=== PATIENT | female | born 1940 | race Caucasian/White ===

== ENCOUNTER 2018-05-11 07:41 | Emergency (ER) | payer MEDICARE, OTHER ==
[2018-05-11 08:12] LABS: #Basophils 0.1 thou/uL (0.0-0.2); #Eosinphils 0.1 thou/uL (0.0-0.7); #Monocytes 0.8 thou/uL (0.11-0.59); #Neutrophils 8.6 thou/uL (1.40-6.50); %Basophils 0.4 % (0.0-1.0); %Eosinophils 0.7 % (0.0-10.0); %Lymphocytes 17.4 % (21.0-51.0); %Monocytes 6.9 % (0.0-10.0); %Neutrophils 74.6 % (42.0-75.0); Hemoglobin 14.7 g/dL (12.0-16.0); Mean Corpuscular HGB CONC 32.1 g/dL (32.0-36.0); Mean Corpuscular Hemoglobin 29.9 pg (27.0-31.0); Mean Platelet Volume 8.3 fL (7.4-10.4); Platelet Count 195 thou/uL (130-400); RBC Distribution Width 12.4 % (11.5-14.5); Red Blood Cell (RBC) Count 4.91 mill/uL (4.20-5.40); White Blood Cell (WBC) Count 11.6 thou/uL (4.8-10.8)
[2018-05-11 08:19] LABS: ALT (SGPT) 9 U/L (8-55); AST (SGOT) 14 U/L (5-34); Albumin 3.8 g/dL (3.4-4.8); Alkaline Phosphatase 81 U/L (40-150); Anion Gap 16 mmol/L (10-20); BUN (Urea Nitrogen) 16 mg/dL (9.8-20.1); Bilirubin, Total 0.4 mg/dL (0.2-1.2); Calc. Creatinine Clearance 0 mL/min (70-130); Carbon Dioxide 23 mmol/L (23-31); Chloride 108 mmol/L (98-107); Estimated GFR-MDRD 66; Globulin 2.9 g/dL (2.4-3.5); Glucose 142 mg/dL (83-110); Protein, Total 6.7 g/dL (6.0-8.3); Sodium 143 mmol/L (136-145)
--- NOTE | 2018-05-11 08:30 | RAD ---
CHEST 1 VIEW: Date: 05/11/18 HISTORY: Syncope. COMPARISON: None. FINDINGS: Lungs are clear. No pneumothorax or effusion. Cardiac silhouette and mediastinal contours within norm al limits. No acute osseous abnormality. No acute osseous abnormality. Moderate vascular calcificatio ns transverse aorta. IMPRESSION: No acute intrathoracic abnormality. POS: [facility]
[2018-05-11 10:30] LABS: Bilirubin Negative (Negative); Blood, Urine Negative (Negative); Clarity CLEAR (Clear); Glucose, Urine (Dipstick) Negative (Negative); Leukocyte Small (Negative); Nitrite Negative (Negative); Protein, Urine (Dipstick) Trace mg/dL (Neg-Trace); Specific Gravity, Urine 1.014 (1.002-1.036)
[2018-05-11 10:32] LABS: Bacteria/HPF None Seen HPF (None Seen); Hyaline Casts/LPF 4-6 HYALINE CAST LPF (0-3 Hyaline); Pathc Cast-AUWi Flag 0.72 (0-2.49)
[2018-05-11 10:49] LABS: Renal Epithelial None Seen HPF (0-3); Transitional Epithelial 0-3 HPF (0-3)
== END 2018-05-11 13:55 | disposition home or self-care (01) ==
LOC: ERS 07:41
DX: R55 Syncope and collapse (principal); I10 Essential (primary) hypertension; Z79.899 Other long term (current) drug therapy
CPT/HCPCS: 36415; 71045; 80053; 81003; 81015; 84484; 85025; 93005; 94760; 96360; 96361

== ENCOUNTER 2020-03-09 10:42 | Inpatient (IN) | payer MEDICARE, OTHER ==
[2020-03-09] MEDS ORDERED: Dexamethasone 10 MG/ML VIAL ONE (11:02)
[2020-03-09 11:24] LABS: #Basophils 0.1 thou/uL (0.0-0.2); #Monocytes 0.7 thou/uL (0.11-0.59); #Neutrophils 4.8 thou/uL (1.40-6.50); %Basophils 1.7 % (0.0-1.0); %Eosinophils 0.1 % (0.0-10.0); %Lymphocytes 14.7 % (21.0-51.0); %Monocytes 10.5 % (0.0-10.0); %Neutrophils 73.1 % (42.0-75.0); Hemoglobin 14.2 g/dL (12.0-16.0); Mean Corpuscular HGB CONC 33.4 g/dL (32.0-36.0); Mean Corpuscular Hemoglobin 30.4 pg (27.0-31.0); Mean Corpuscular Volume 90.9 fL (78.0-98.0); Mean Platelet Volume 9.2 fL (7.4-10.4); Platelet Count 126 thou/uL (130-400); RBC Distribution Width 12.3 % (11.5-14.5); Red Blood Cell (RBC) Count 4.69 mill/uL (4.20-5.40); White Blood Cell (WBC) Count 6.6 thou/uL (4.8-10.8)
--- NOTE | 2020-03-09 11:32 | RAD ---
CHEST 1 VIEW PORTABLE: HISTORY: Dyspnea, COVID positive, diarrhea. COMPARISON: 05/11/2018. FINDINGS: Heart size is within normal limits. Stable increased markings noted bilaterally with mild biapical p leural thickening. No evidence for overt pneumonia. IMPRESSION: No convincing evidence for pneumonia. Stable-appearing chronic lung changes. Atherosclerosis of the aorta. Consider followup evaluation if patient has persistent or worsening symptoms. POS: [facility]
[2020-03-09 11:37] LABS: ALT (SGPT) 13 U/L (8-55); AST (SGOT) 28 U/L (5-34); Albumin 3.7 g/dL (3.4-4.8); Alkaline Phosphatase 65 U/L (40-110); Anion Gap 16 mmol/L (10-20); BUN (Urea Nitrogen) 13 mg/dL (9.8-20.1); Bilirubin, Total 0.7 mg/dL (0.2-1.2); CK (CPK) 47 U/L (29-168); Calc. Creatinine Clearance 0 mL/min (70-130); Calcium 8.6 mg/dL (7.8-10.44); Carbon Dioxide 24 mmol/L (23-31); Chloride 100 mmol/L (98-107); Glucose 147 mg/dL (83-110); Lipase 29 U/L (8-78); Protein, Total 6.7 g/dL (6.0-8.3); Sodium 136 mmol/L (136-145)
[2020-03-09 12:02] LABS: CKMB 0.5 ng/mL (0-6.6)
[2020-03-09 13:24] LABS: Troponin I 0.047 ng/mL (< 0.028)
[2020-03-09] MEDS ORDERED: Acetaminophen 650 MG Suppository PR PRN (14:24)
--- NOTE | 2020-03-09 15:01 | PDOC.HHP ---
Hospitalist HPI - History of Present Illness History of Present Illness: ADMISSION DATE: 03/09/2020 TIME OF ASSESSMENT: 1400 PRIMARY CARE PHYSICIAN: Dr. Jha CHIEF COMPLAINT: Syncope and diarrhea HPI: This is a 79-year-old woman who was brought into the emergency department via EMS after having a fall/syncopal episode immediately after getting up from the toilet this morning at approximately 9 AM. Patient denies feeling unwell prior to falling and does not recall having any chest pain, shortness of breath, diaphoresis, lightheadedness or dizziness. She does not think she lost consciousness and feels she was fully alert when she fell. She states she called out for her right away. Immediately after falling to the ground she experienced uncontrollable watery stools that she states "flowed out like water". She denies having any abdominal pain or discomfort. Did not note any blood in her stool. States she had a bowel movement yesterday and it was normal. She has not been exposed anyone with a GI bug that she is aware of. Her primary complaint at this time is feeling extremely thirsty and states she has not had anything to eat or drink since she woke up this morning. She denies experiencing any head injury and reports feeling generally sore but otherwise without any significant pain anywhere. Reports feeling well in herself in recent days. She has not had any fevers chills or sweats. No cough or hemoptysis. She did get tested on Friday for Covid and was found to be positive. States she only got tested due to exposure to her daughter who tested positive a week ago. Patient denies experiencing any symptoms associated with Covid. ED COURSE: In the emergency department she had an EKG done which showed a left bundle branch block. Per Dr. Galdamez this was compared to old EKGs which were similar. She had laboratory studies done which showed a white cell count 6.6, hemoglobin 14.2, hematocrit 42.6, platelets 126. Neutrophils 73.1%. CMP was notable for an elevated creatinine of 1.17, BUN 13, GFR 45. Glucose was 147. LFTs were unremarkable. Lipase normal. CK 47. BN P was 116.5. CK-MB normal. Initial troponin done showed an indeterminate level of 0.034, second troponin was slightly elevated 0.047. She was initially going to be discharged home however given the failure increasing the troponin the decision was made to admit her to telemetry opts for continued observation and further trending troponins. Chest x-ray done showed no convincing evidence for pneumonia. Stable appearing chronic lung changes and atherosclerosis of the aorta present. In the emergency department she was given aspirin 324 mg p.o. She received 10 mg of Decadron due to known Covid infection. She also received 1 L of normal saline. PAST MEDICAL HISTORY: 1. Hypertension PAST SURGICAL HISTORY: 1. Abdominal hernia repair SOCIAL HISTORY: She lives with her . She is fully independent at baseline and mobilizes without the need of assistive devices. Denies any tobacco use or alcohol consumption. FAMILY HISTORY: Noncontributory ALLERGIES: No known drug allergies CURRENT MEDICATIONS: 1. Amlodipine 5 mg p.o. daily 2. Lisinopril 20 mg p.o. daily - Exam General Appearance: NAD, awake alert General - other findings: VS: Temp 100, BP 112/56, HR 78, RR 20, O2 sat 97% on room air Eye: PERRL, anicteric sclera ENT: normocephalic atraumatic, no oropharyngeal lesions, moist mucosa Neck: supple, no lymphadenopathy Heart: RRR, normal peripheral pulses Respiratory: CTAB, no wheezes, no rales, no ronchi, normal chest expansion Gastrointestinal: soft, non-tender, non-distended, normal bowel sounds, no guarding, no rigidity Gastrointestinal - other findings: mid abdominal incision, well healed Extremities: no edema Skin: normal turgor, no lesions, no rashes Neurological: cranial nerve grossly intact, normal sensation to touch, no weakness Musculoskeletal: normal tone, normal strength, no muscle wasting Psychiatric: normal affect, normal behavior, A&O x 3 Hospitalist Results - Labs Result Diagrams: 03/09/20 11:02 03/09/20 11:02 Lab results: WBC 6.6 thou/uL (4.8-10.8) 03/09/20 11:02 Hgb 14.2 g/dL (12.0-16.0) 03/09/20 11:02 Hct 42.6 % (36.0-47.0) 03/09/20 11:02 MCV 90.9 fL (78.0-98.0) 03/09/20 11:02 Plt Count 126 thou/uL (130-400) L 03/09/20 11:02 Neutrophils % 73.1 % (42.0-75.0) 03/09/20 11:02 Sodium 136 mmol/L (136-145) 03/09/20 11:02 Potassium 4.0 mmol/L (3.5-5.1) 03/09/20 11:02 Chloride 100 mmol/L (98-107) 03/09/20 11:02 Carbon Dioxide 24 mmol/L (23-31) 03/09/20 11:02 BUN 13 mg/dL (9.8-20.1) 03/09/20 11:02 Creatinine 1.17 mg/dL (0.6-1.1) H 03/09/20 11:02 Glucose 147 mg/dL (83-110) H 03/09/20 11:02 Calcium 8.6 mg/dL (7.8-10.44) 03/09/20 11:02 Total Bilirubin 0.7 mg/dL (0.2-1.2) 03/09/20 11:02 AST 28 U/L (5-34) 03/09/20 11:02 ALT 13 U/L (8-55) 03/09/20 11:02 Alkaline Phosphatase 65 U/L (40-110) 03/09/20 11:02 Creatine Kinase 47 U/L (29-168) 03/09/20 11:02 CK-MB (CK-2) 0.5 ng/mL (0-6.6) 03/09/20 11:02 Troponin I 0.047 ng/mL (< 0.028) H 03/09/20 12:49 B-Natriuretic Peptide 116.5 pg/mL (0-100) H 03/09/20 11:02 Serum Total Protein 6.7 g/dL (6.0-8.3) 03/09/20 11:02 Albumin 3.7 g/dL (3.4-4.8) 03/09/20 11:02 Lipase 29 U/L (8-78) 03/09/20 11:02 Hospitalist H&P A/P - Problem (1) Pre-syncope Status: Acute (2) Elevated troponin I level Code(s): R77.8 - OTHER SPECIFIED ABNORMALITIES OF PLASMA PROTEINS Status: Acute (3) Diarrhea Code(s): R19.7 - DIARRHEA, UNSPECIFIED Status: Acute (4) COVID-19 virus detected Code(s): U07.1 - COVID-19 Status: Acute (5) KG (acute kidney injury) Code(s): N17.9 - ACUTE KIDNEY FAILURE, UNSPECIFIED Status: Acute (6) Hypertension Code(s): I10 - ESSENTIAL (PRIMARY) HYPERTENSION Status: Chronic - Plan Plan: Patient with post-micturation pre-syncope: Denies LOC Admitted for pre-syncope/syncope work-up, likely due vasovagal episode Continue cardiac monitoring Obtain orthostatic BPs Unable to have an echo given covid status Falls precaution PT/OT consulted Obtain UA/UCx Elevated Troponin: More likely due to underlying KG rather than cardiac in nature Continue to trend Remains CP free cardiac monitoring Diarrhea: Stool studies ordered Clear liquid diet, advance as tolerated Monitor electrolytes and replace as needed COVID +: Asymptomatic at present Hold further antibiotics Will give Zinc and Vitamin C Continue isolation precautions KG: Continue IV fluids Monitor renal function Hypertension: Monitor BP Hold antihypertensives for now given BP in 110s systolic DVT Prophylaxis: Mechanical SCDs. CODE STATUS FULL Case discussed with attending who agrees with plan as above.
[2020-03-09 16:57] LABS: Lactic Acid 0.8 mmol/L (0.5-2.2)
[2020-03-09 17:04] LABS: Troponin I 0.016 ng/mL (< 0.028)
[2020-03-09] MEDS: Famotidine 20 MG TAB PO SCH (20:19)
[2020-03-09] MEDS: Sodium Chloride 0.9% 1,000 ML IV SCH (20:19)
[2020-03-09] MEDS: Acetaminophen 325 MG TAB PO PRN (22:22)
[2020-03-09 23:04] LABS: Bacteria/HPF 3+ HPF (None Seen); Bilirubin Negative (Negative); Blood, Urine Negative (Negative); Clarity Turbid (Clear); Glucose, Urine (Dipstick) Normal (Negative); Ketone, Urine 10 mg/dL (Negative); Leukocyte 500 Leu/uL (Negative); Nitrite Negative (Negative); Protein, Urine (Dipstick) Negative (Neg-Trace); Specific Gravity, Urine 1.007 (1.002-1.036); Urobilinogen Normal mg/dL (Less than 2); WBC/HPF Greater than 50 HPF (0-3)
[2020-03-09 23:13] LABS: Renal Epithelial 0-3 HPF (None Seen); Transitional Epithelial 0-3 HPF (None Seen)
[2020-03-09 23:14] LABS: Urine Culture Reflex No No
[2020-03-10 05:42] LABS: Hemoglobin 14.2 g/dL (12.0-16.0); Mean Corpuscular HGB CONC 33.3 g/dL (32.0-36.0); Mean Corpuscular Volume 90.1 fL (78.0-98.0); Mean Platelet Volume 10.3 fL (7.4-10.4); Platelet Count 81 thou/uL (130-400); Red Blood Cell (RBC) Count 4.72 mill/uL (4.20-5.40); White Blood Cell (WBC) Count 3.4 thou/uL (4.8-10.8)
[2020-03-10 06:04] LABS: ALT (SGPT) 16 U/L (8-55); AST (SGOT) 25 U/L (5-34); Albumin 3.5 g/dL (3.4-4.8); Alkaline Phosphatase 58 U/L (40-110); Anion Gap 17 mmol/L (10-20); BUN (Urea Nitrogen) 14 mg/dL (9.8-20.1); Bilirubin, Total 0.6 mg/dL (0.2-1.2); Calc. Creatinine Clearance 73 mL/min (70-130); Calcium 8.5 mg/dL (7.8-10.44); Carbon Dioxide 18 mmol/L (23-31); Chloride 106 mmol/L (98-107); Globulin 3.1 g/dL (2.4-3.5); Glucose 110 mg/dL (83-110); Potassium 4.2 mmol/L (3.5-5.1); Protein, Total 6.6 g/dL (6.0-8.3); Sodium 137 mmol/L (136-145)
[2020-03-10 07:05] LABS: Band 13 % (5-11); Lymphocytes 9 % (21-51); MDiff Complete? YES; Monocytes 21 % (0-10); Neutrophil 55 % (42-75); Reactive Lymphocytes 2 % (0-10)
[2020-03-10] MEDS: Zinc Sulfate 220 MG CAP PO SCH (08:20)
[2020-03-10] MEDS: Famotidine 20 MG TAB PO SCH ×2 (08:20→20:45)
[2020-03-10] MEDS: Sodium Chloride 0.9% 1,000 ML IV SCH ×2 (08:24→20:45)
--- NOTE | 2020-03-10 08:58 | PDOC.HOSPP ---
- Subjective Encounter Date: 03/10/20 Encounter Time: 08:47 Subjective: malaise, watery diarrhea, incontinent of urine. absolutely no respiratory complaints - Objective Vital Signs & Weight: Vital Signs (12 hours) Temp Pulse Resp BP Pulse Ox 03/10/20 08:00 98.0 F 80 20 134/80 98 03/10/20 04:19 97.6 F 67 20 163/75 H 98 03/10/20 00:25 75 Weight Weight 147 lb 11.2 oz I&O: 03/09/20 03/10/20 03/11/20 06:59 06:59 06:59 Intake Total 1390 Output Total 2570 Balance -1180 Result Diagrams: 03/10/20 05:06 03/10/20 05:06 Hospitalist ROS - Medication Medications: Active Medications Generic Name Dose Route Start Last Admin Trade Name Freq PRN Reason Stop Dose Admin Acetaminophen 650 mg 03/09/20 14:24 03/09/20 22:22 Acetaminophen 325 Mg Tab PO 650 mg Q4H PRN Administration Headache/Fever/Mild Pain (1-3) Famotidine 20 mg 03/09/20 21:00 03/10/20 08:20 Famotidine 20 Mg Tab PO 20 mg BID DAVID Administration Sodium Chloride 1,000 mls @ 75 mls/hr 03/09/20 14:30 03/10/20 08:24 Normal Saline 0.9% IV 1,000 mls .[id number] DAVID Administration Zinc Sulfate 220 mg 03/10/20 09:00 03/10/20 08:20 Zinc Sulfate 220 Mg Cap PO 220 mg DAILY DAVID Administration - Exam General Appearance: awake alert Neck: no JVD Heart: RRR, no murmur Respiratory: CTAB Gastrointestinal: soft, non-distended, normal bowel sounds Extremities: no edema Hosp A/P (1) COVID-19 virus detected Code(s): U07.1 - COVID-19 Status: Acute (2) Diarrhea Code(s): R19.7 - DIARRHEA, UNSPECIFIED Status: Acute Qualifiers: Diarrhea type: presumed infectious Qualified Code(s): R19.7 - Diarrhea, unspecified (3) Elevated troponin I level Code(s): R77.8 - OTHER SPECIFIED ABNORMALITIES OF PLASMA PROTEINS Status: Acute (4) Hypertension Code(s): I10 - ESSENTIAL (PRIMARY) HYPERTENSION Status: Chronic Qualifiers: Hypertension type: essential hypertension Qualified Code(s): I10 - Essential (primary) hypertension (5) KG (acute kidney injury) Code(s): N17.9 - ACUTE KIDNEY FAILURE, UNSPECIFIED Status: Resolved (6) UTI (urinary tract infection) Status: Acute - Plan 1. COVID positive x4 days, no resp issues 2. diarrhea-stool studies pending 3. UTI/incontinence- await C diff titer, urine C&S 4. HTN-resume home meds
[2020-03-10] MEDS ORDERED: Non-Formulary Item 1 EACH (Esomeprazole Magnesium [Esomeprazole Magnesium] 20 MG Capsule. PO SCH (09:00)
[2020-03-10] MEDS: Ascorbic Acid 500 mg Chewable Tablet PO SCH (10:35)
[2020-03-10] MEDS: Acetaminophen 325 MG TAB PO PRN ×2 (10:37→15:05)
[2020-03-10] MEDS: Amlodipine 5 MG TAB PO SCH (20:45)
[2020-03-11] MEDS: Acetaminophen 325 MG TAB PO PRN ×2 (04:01→20:02)
[2020-03-11 08:41] LABS: #Lymphocytes 0.6 thou/uL (1.20-3.40); #Monocytes 0.4 thou/uL (0.11-0.59); %Basophils 0.2 % (0.0-1.0); %Eosinophils 0.1 % (0.0-10.0); %Lymphocytes 10.5 % (21.0-51.0); %Monocytes 6.9 % (0.0-10.0); %Neutrophils 82.5 % (42.0-75.0); Hemoglobin 14.7 g/dL (12.0-16.0); Mean Corpuscular HGB CONC 33.6 g/dL (32.0-36.0); Mean Corpuscular Volume 89.3 fL (78.0-98.0); Platelet Count 123 thou/uL (130-400); RBC Distribution Width 12.3 % (11.5-14.5); Red Blood Cell (RBC) Count 4.88 mill/uL (4.20-5.40); White Blood Cell (WBC) Count 6.1 thou/uL (4.8-10.8)
[2020-03-11 08:58] LABS: Anion Gap 19 mmol/L (10-20); BUN (Urea Nitrogen) 13 mg/dL (9.8-20.1); Calc. Creatinine Clearance 69 mL/min (70-130); Calcium 8.5 mg/dL (7.8-10.44); Carbon Dioxide 18 mmol/L (23-31); Chloride 104 mmol/L (98-107); Glucose 106 mg/dL (83-110); Potassium 3.7 mmol/L (3.5-5.1); Sodium 137 mmol/L (136-145)
[2020-03-11] MEDS: Zinc Sulfate 220 MG CAP PO SCH (09:54)
[2020-03-11] MEDS: Ascorbic Acid 500 mg Chewable Tablet PO SCH (09:54)
[2020-03-11] MEDS: Famotidine 20 MG TAB PO SCH ×2 (09:54→20:01)
[2020-03-11] MEDS ORDERED: Sodium Bicarb 50 MEQ/50 ML Abboject 8.4% SYRINGE ONE (11:38)
[2020-03-11] MEDS ORDERED: PROPOFOL 200 MG/20 ML VIAL ONE (11:38)
[2020-03-11] MEDS ORDERED: Rocuronium Bromide 10 MG/ML (10ML VIAL) ONE (11:38)
[2020-03-11] MEDS: Sodium Chloride 0.9% 1,000 ML IV SCH ×2 (12:17→23:03)
--- NOTE | 2020-03-11 13:16 | PDOC.HOSPP ---
- Subjective Encounter Date: 03/11/20 Encounter Time: 13:14 Subjective: In for follow-up regarding urinary tract infection. She denies diarrhea. - Objective Vital Signs & Weight: Vital Signs (12 hours) Temp Pulse Resp BP BP Pulse Ox 03/11/20 08:00 98.9 F 92 16 142/80 H 95 03/11/20 07:28 98.9 F 92 16 142/80 H 95 03/11/20 04:31 99.6 F 03/11/20 04:00 92 16 147/73 H 95 Weight Weight 147 lb 11.2 oz I&O: 03/10/20 03/11/20 03/12/20 06:59 06:59 06:59 Intake Total 1390 1740 120 Output Total 2570 2580 Balance -1180 -840 120 Result Diagrams: 03/11/20 08:30 03/11/20 08:30 Additional Labs: Labs and MAR reviewed by ct Hospitalist ROS - Review of Systems Gastrointestinal: denies: nausea, vomiting, abdominal pain, diarrhea, constipation, melena, hematochezia Genitourinary: denies: dysuria, frequency, incontinence, hematuria, retention - Medication Medications: Active Medications Generic Name Dose Route Start Last Admin Trade Name Freq PRN Reason Stop Dose Admin Acetaminophen 650 mg 03/09/20 14:24 03/11/20 04:01 Acetaminophen 325 Mg Tab PO 650 mg Q4H PRN Administration Headache/Fever/Mild Pain (1-3) Acetaminophen 650 mg 03/09/20 14:24 03/10/20 23:15 Acetaminophen 650 Mg Suppository [place] 650 mg Q4H PRN Administration Headache/Fever/Mild Pain (1-3) Amlodipine Besylate 5 mg 03/10/20 21:00 03/10/20 20:45 Amlodipine 5 Mg Tab PO 5 mg HS DAVID Administration Ascorbic Acid 1,000 mg 03/10/20 09:00 03/11/20 09:54 Ascorbic Acid 500 Mg Chewable Tablet PO 1,000 mg DAILY DAVID Administration Famotidine 20 mg 03/09/20 21:00 03/11/20 09:54 Famotidine 20 Mg Tab PO 20 mg BID DAVID Administration Sodium Chloride 1,000 mls @ 75 mls/hr 03/09/20 14:30 03/11/20 12:17 Normal Saline 0.9% IV 1,000 mls .[id number] DAVID Administration Pantoprazole Sodium 40 mg 03/10/20 09:00 03/11/20 09:54 Pantoprazole 40 Mg Tab PO 40 mg DAILY DAVID Administration Zinc Sulfate 220 mg 03/10/20 09:00 03/11/20 09:54 Zinc Sulfate 220 Mg Cap PO 220 mg DAILY DAVID Administration - Exam General Appearance: awake alert Eye: anicteric sclera ENT: normocephalic atraumatic Neck: supple Heart: RRR Respiratory: CTAB Gastrointestinal: soft, non-tender Extremities: no edema Skin: no rashes Psychiatric: normal affect, normal behavior, oriented to person, oriented to place Hosp A/P - Plan Hosp A/P (1) UTI (urinary tract infection) Status: Acute (2) COVID-19 virus detected Code(s): U07.1 - COVID-19 Status: Acute (3) Elevated troponin I level Code(s): R77.8 - OTHER SPECIFIED ABNORMALITIES OF PLASMA PROTEINS Status: Acute (4) Hypertension Code(s): I10 - ESSENTIAL (PRIMARY) HYPERTENSION Status: Chronic Qualifiers: Hypertension type: essential hypertension Qualified Code(s): I10 - Ess ential (primary) hypertension (5) KG (acute kidney injury) Code(s): N17.9 - ACUTE KIDNEY FAILURE, UNSPECIFIED Status: Resolved (2) Diarrhea Code(s): R19.7 - DIARRHEA, UNSPECIFIED Status: Resolved Qualifiers: Diarrhea type: presumed infectious Qualified Code(s): R19.7 - Diarrhea, unspecified - Plan 1. Diarrhea has resolved. 2. Troponin levels normalized, initial elevation likely secondary to demand ischemia. 3. Start ceftriaxone, order urine for culture and sensitivity 4. HTN-monitor vital signs and titrate antihypertensives as needed. 5. Disposition: Home with family support when medically stable. 6. Continue vitamin C and zinc. Son and daughter updated over the telephone.
[2020-03-11] MEDS: cefTRIAXone\\ROCEPHIN 1 GM in Sodium Chloride 0.9% 100 ML IVPB SCH (13:51)
--- NOTE | 2020-03-11 15:23 | EKG ---
Test Reason : Blood Pressure : / mmHG Vent. Rate : 084 BPM Atrial Rate : 084 BPM P-R Int : 128 ms QRS Dur : 124 ms QT Int : 408 ms P-R-T Axes : 092 002 140 degrees QTc Int : 482 ms Sinus rhythm with Premature atrial complexes with Abberant conduction Left bundle branch block --old Abnormal ECG Confirmed by JESSICA PULIDO, NOREEN (12), metropolitan editor CARA SOLARES ([id number]) on 03/11/2020 3:22:47 PM Referred By: Confirmed By:NOREEN LOPEZ MD
[2020-03-11] MEDS: Amlodipine 5 MG TAB PO SCH (20:02)
[2020-03-12 06:20] LABS: #Lymphocytes 1.1 thou/uL (1.20-3.40); #Monocytes 0.5 thou/uL (0.11-0.59); #Neutrophils 6.2 thou/uL (1.40-6.50); %Basophils 0.1 % (0.0-1.0); %Eosinophils 0.1 % (0.0-10.0); %Monocytes 6.6 % (0.0-10.0); %Neutrophils 79.2 % (42.0-75.0); Hemoglobin 13.7 g/dL (12.0-16.0); Mean Corpuscular HGB CONC 32.9 g/dL (32.0-36.0); Mean Corpuscular Volume 91.1 fL (78.0-98.0); Mean Platelet Volume 9.2 fL (7.4-10.4); Platelet Count 127 thou/uL (130-400); RBC Distribution Width 12.3 % (11.5-14.5); Red Blood Cell (RBC) Count 4.57 mill/uL (4.20-5.40); White Blood Cell (WBC) Count 7.9 thou/uL (4.8-10.8)
[2020-03-12 06:48] LABS: Anion Gap 15 mmol/L (10-20); BUN (Urea Nitrogen) 12 mg/dL (9.8-20.1); Calc. Creatinine Clearance 67 mL/min (70-130); Calcium 8.5 mg/dL (7.8-10.44); Carbon Dioxide 21 mmol/L (23-31); Chloride 106 mmol/L (98-107); Glucose 72 mg/dL (83-110); Potassium 3.3 mmol/L (3.5-5.1); Sodium 139 mmol/L (136-145)
[2020-03-12] MEDS: Ascorbic Acid 500 mg Chewable Tablet PO SCH (08:59)
[2020-03-12] MEDS: Zinc Sulfate 220 MG CAP PO SCH (09:00)
[2020-03-12] MEDS: Famotidine 20 MG TAB PO SCH ×2 (09:00→19:28)
[2020-03-12] MEDS: Sodium Chloride 0.9% 1,000 ML IV SCH (11:16)
[2020-03-12] MEDS: cefTRIAXone\\ROCEPHIN 1 GM in Sodium Chloride 0.9% 100 ML IVPB SCH (13:13)
--- NOTE | 2020-03-12 14:22 | PDOC.HOSPP ---
- Subjective Encounter Date: 03/12/20 Encounter Time: 10:30 Subjective: Patient seen for follow-up regarding UTI. She denies chest pain or shortness of breath. - Objective Vital Signs & Weight: Vital Signs (12 hours) Temp Pulse Resp BP Pulse Ox 03/12/20 11:29 98.5 F 85 16 149/75 H 94 L 03/12/20 08:00 98.9 F 103 H 18 153/79 H 95 Weight Weight 147 lb 11.2 oz I&O: 03/11/20 03/12/20 03/13/20 06:59 06:59 06:59 Intake Total 1740 2055 120 Output Total 2580 900 700 Balance -840 1155 -580 Result Diagrams: 03/12/20 05:48 03/12/20 05:48 Additional Labs: I reviewed patient's labs and MAR Hospitalist ROS - Review of Systems Cardiovascular: denies: chest pain, palpitations, orthopnea, paroxysmal noc. dyspnea, edema, light headedness Gastrointestinal: denies: nausea, vomiting, abdominal pain, diarrhea, constipation, melena, hematochezia - Medication Medications: Active Medications Generic Name Dose Route Start Last Admin Trade Name Freq PRN Reason Stop Dose Admin Acetaminophen 650 mg 03/09/20 14:24 03/11/20 20:02 Acetaminophen 325 Mg Tab PO 650 mg Q4H PRN Administration Headache/Fever/Mild Pain (1-3) Acetaminophen 650 mg 03/09/20 14:24 03/10/20 23:15 Acetaminophen 650 Mg Suppository [place] 650 mg Q4H PRN Administration Headache/Fever/Mild Pain (1-3) Amlodipine Besylate 5 mg 03/10/20 21:00 03/11/20 20:02 Amlodipine 5 Mg Tab PO 5 mg HS DAVID Administration Ascorbic Acid 1,000 mg 03/10/20 09:00 03/12/20 08:59 Ascorbic Acid 500 Mg Chewable Tablet PO 1,000 mg DAILY DAVID Administration Famotidine 20 mg 03/09/20 21:00 03/12/20 09:00 Famotidine 20 Mg Tab PO 20 mg BID DAVID Administration Sodium Chloride 1,000 mls @ 75 mls/hr 03/09/20 14:30 03/12/20 11:16 Normal Saline 0.9% IV 1,000 mls .[id number] DAVID Administration Ceftriaxone Sodium 1 gm/ 100 mls @ 200 mls/hr 03/11/20 13:00 03/12/20 13:13 Sodium Chloride IVPB 100 mls 1300 DAVID Administration Pantoprazole Sodium 40 mg 03/10/20 09:00 03/12/20 09:00 Pantoprazole 40 Mg Tab PO 40 mg DAILY DAVID Administration Zinc Sulfate 220 mg 03/10/20 09:00 03/12/20 09:00 Zinc Sulfate 220 Mg Cap PO 220 mg DAILY DAVID Administration - Exam General Appearance: awake alert Eye: PERRL ENT: normocephalic atraumatic Neck: supple Heart: RRR Respiratory: CTAB Gastrointestinal: soft Extremities: no clubbing Skin: no rashes Psychiatric: normal affect, normal behavior Hosp A/P - Plan Hosp A/P (1) UTI (urinary tract infection) Status: Acute (2) COVID-19 virus detected Code(s): U07.1 - COVID-19 Status: Acute (3) Elevated troponin I level Code(s): R77.8 - OTHER SPECIFIED ABNORMALITIES OF PLASMA PROTEINS Status: Acute (4) Hypertension Code(s): I10 - ESSENTIAL (PRIMARY) HYPERTENSION Status: Chronic Qualifiers: Hypertension type: essential hypertension Qualified Code(s): I10 - Essential (primary) hypertension (5) KG (acute kidney injury) Code(s): N17.9 - ACUTE KIDNEY FAILURE, UNSPECIFIED Status: Resolved (2) Diarrhea Code(s): R19.7 - DIARRHEA, UNSPECIFIED Status: Resolved Qualifiers: Diarrhea type: presumed infectious Qualified Code(s): R19.7 - Diarrhea, unspecified - Plan Urine culture growing E. coli, await sensitivities. Continue ceftriaxone Pulmonary status stable. Disposition: Home with family support when medically stable. Continue vitamin C and zinc. Son updated over the telephone.
[2020-03-12] MEDS: Amlodipine 5 MG TAB PO SCH (19:28)
[2020-03-13] MEDS: Sodium Chloride 0.9% 1,000 ML IV SCH ×2 (02:38→17:01)
[2020-03-13 07:06] LABS: #Lymphocytes 0.7 thou/uL (1.20-3.40); #Monocytes 0.7 thou/uL (0.11-0.59); #Neutrophils 5.9 thou/uL (1.40-6.50); %Basophils 0.1 % (0.0-1.0); %Eosinophils 0.2 % (0.0-10.0); %Lymphocytes 9.9 % (21.0-51.0); %Monocytes 9.5 % (0.0-10.0); %Neutrophils 80.2 % (42.0-75.0); Hemoglobin 12.3 g/dL (12.0-16.0); Mean Corpuscular HGB CONC 32.9 g/dL (32.0-36.0); Mean Corpuscular Hemoglobin 29.5 pg (27.0-31.0); Mean Corpuscular Volume 89.8 fL (78.0-98.0); Mean Platelet Volume 8.9 fL (7.4-10.4); Platelet Count 128 thou/uL (130-400); RBC Distribution Width 12.2 % (11.5-14.5); Red Blood Cell (RBC) Count 4.16 mill/uL (4.20-5.40); White Blood Cell (WBC) Count 7.4 thou/uL (4.8-10.8)
[2020-03-13 07:14] LABS: Anion Gap 13 mmol/L (10-20); BUN (Urea Nitrogen) 11 mg/dL (9.8-20.1); Calc. Creatinine Clearance 75 mL/min (70-130); Calcium 7.9 mg/dL (7.8-10.44); Carbon Dioxide 22 mmol/L (23-31); Chloride 104 mmol/L (98-107); Glucose 87 mg/dL (83-110); Sodium 136 mmol/L (136-145)
[2020-03-13 07:19] LABS: Potassium 2.9 mmol/L (3.5-5.1)
--- NOTE | 2020-03-13 07:40 | PDOC.HOSPP ---
- Subjective Encounter Date: 03/13/20 Encounter Time: 11:00 Subjective: Patient with fever to 100.5 this AM. Having large, watery, yellow diarrhea today. Per daughter patient had diarrhea prior to coming in with her Covid-19 symptoms. Not eating really well. Some cough but no shortness of breath. - Objective Vital Signs & Weight: Vital Signs (12 hours) Temp Pulse Resp BP Pulse Ox 03/12/20 21:00 94 L 03/12/20 20:00 99.0 F 100 18 156/81 H 94 L Weight Weight 147 lb 11.2 oz I&O: 03/12/20 03/13/20 03/14/20 06:59 06:59 06:59 Intake Total 5335 3295 Output Total 900 1150 Balance 1155 2145 Result Diagrams: 03/13/20 06:39 03/13/20 13:11 Hospitalist ROS - Review of Systems Constitutional: reports: fever. denies: chills Respiratory: reports: cough. denies: shortness of breath Cardiovascular: denies: chest pain, palpitations Gastrointestinal: reports: diarrhea. denies: nausea, vomiting, abdominal pain - Medication Medications: Active Medications Generic Name Dose Route Start Last Admin Trade Name Freq PRN Reason Stop Dose Admin Acetaminophen 650 mg 03/09/20 14:24 03/11/20 20:02 Acetaminophen 325 Mg Tab PO 650 mg Q4H PRN Administration Headache/Fever/Mild Pain (1-3) Acetaminophen 650 mg 03/09/20 14:24 03/10/20 23:15 Acetaminophen 650 Mg Suppository [place] 650 mg Q4H PRN Administration Headache/Fever/Mild Pain (1-3) Amlodipine Besylate 5 mg 03/10/20 21:00 03/12/20 19:28 Amlodipine 5 Mg Tab PO 5 mg HS DAVID Administration Ascorbic Acid 1,000 mg 03/10/20 09:00 03/12/20 08:59 Ascorbic Acid 500 Mg Chewable Tablet PO 1,000 mg DAILY DAVID Administration Famotidine 20 mg 03/09/20 21:00 03/12/20 19:28 Famotidine 20 Mg Tab PO 20 mg BID DAVID Administration Sodium Chloride 1,000 mls @ 75 mls/hr 03/09/20 14:30 03/13/20 02:38 Normal Saline 0.9% IV 1,000 mls .[id number] DAVID Administration Ceftriaxone Sodium 1 gm/ 100 mls @ 200 mls/hr 03/11/20 13:00 03/12/20 13:13 Sodium Chloride IVPB 100 mls 1300 DAVID Administration Pantoprazole Sodium 40 mg 03/10/20 09:00 03/12/20 09:00 Pantoprazole 40 Mg Tab PO 40 mg DAILY DAVID Administration Zinc Sulfate 220 mg 03/10/20 09:00 03/12/20 09:00 Zinc Sulfate 220 Mg Cap PO 220 mg DAILY DAVID Administration - Exam General Appearance: NAD, awake alert ENT: moist mucosa Heart: RRR, no murmur, no gallops, no rubs Respiratory: CTAB, no wheezes, no rales, no ronchi Gastrointestinal: soft, non-tender, non-distended, normal bowel sounds Extremities: no edema Psychiatric: normal affect, normal behavior Hosp A/P - Plan (1) UTI (urinary tract infection) Status: Acute (2) COVID-19 virus detected Code(s): U07.1 - COVID-19 Status: Acute (3) Elevated troponin I level Code(s): R77.8 - OTHER SPECIFIED ABNORMALITIES OF PLASMA PROTEINS Status: Acute (4) Hypertension Code(s): I10 - ESSENTIAL (PRIMARY) HYPERTENSION Status: Chronic Qualifiers: Hypertension type: essential hypertension Qualified Code(s): I10 - Essential (primary) hypertension (5) KG (acute kidney injury) Code(s): N17.9 - ACUTE KIDNEY FAILURE, UNSPECIFIED Status: Resolved (6) Diarrhea Code(s): R19.7 - DIARRHEA, UNSPECIFIED Status: Resolved Qualifiers: Diarrhea type: presumed infectious Qualified Code(s): R19.7 - Diarrhea, unspecified (7) Hypokalemia - Plan Urine culture growing E. coli, pansensitive. On ceftriaxone, can switch to oral antibiotics on discharge Pulmonary status stable. Disposition: Home with family support, patient possibly can go home tomorrow, daughter doing to try to arrange to have someone there to help her Continue vitamin C and zinc. Will advance diet Updated daughter on the phone.
[2020-03-13] MEDS: Potassium Chloride 20 MEQ TAB PO SCH ×2 (08:17→16:59)
[2020-03-13] MEDS: Ascorbic Acid 500 mg Chewable Tablet PO SCH (08:18)
[2020-03-13] MEDS: Famotidine 20 MG TAB PO SCH ×2 (08:18→20:35)
[2020-03-13] MEDS: Zinc Sulfate 220 MG CAP PO SCH (08:18)
[2020-03-13] MEDS: cefTRIAXone\\ROCEPHIN 1 GM in Sodium Chloride 0.9% 100 ML IVPB SCH (13:03)
[2020-03-13 13:37] LABS: Anion Gap 14 mmol/L (10-20); BUN (Urea Nitrogen) 11 mg/dL (9.8-20.1); Calc. Creatinine Clearance 64 mL/min (70-130); Calcium 8.2 mg/dL (7.8-10.44); Carbon Dioxide 24 mmol/L (23-31); Chloride 103 mmol/L (98-107); Glucose 124 mg/dL (83-110); Potassium 3.6 mmol/L (3.5-5.1); Sodium 137 mmol/L (136-145)
[2020-03-13] MEDS: Acetaminophen 325 MG TAB PO PRN ×2 (17:15→23:39)
[2020-03-13] MEDS: Amlodipine 5 MG TAB PO SCH (20:35)
[2020-03-14] MEDS ORDERED: GUAIFENESIN SF SOLN 200 MG/10 ML UDCUP PO PRN (04:18)
[2020-03-14] MEDS ORDERED: Guaifenesin DM 100-10/5 ML UDCUP PO PRN (04:49)
[2020-03-14 06:39] LABS: #Lymphocytes 0.6 thou/uL (1.20-3.40); #Monocytes 0.9 thou/uL (0.11-0.59); #Neutrophils 8.5 thou/uL (1.40-6.50); %Basophils 0.1 % (0.0-1.0); %Eosinophils 0.4 % (0.0-10.0); %Lymphocytes 5.7 % (21.0-51.0); %Monocytes 8.5 % (0.0-10.0); %Neutrophils 85.4 % (42.0-75.0); Hemoglobin 13.3 g/dL (12.0-16.0); Mean Corpuscular HGB CONC 32.2 g/dL (32.0-36.0); Mean Corpuscular Hemoglobin 28.9 pg (27.0-31.0); Mean Corpuscular Volume 89.7 fL (78.0-98.0); Mean Platelet Volume 8.8 fL (7.4-10.4); Platelet Count 164 thou/uL (130-400); RBC Distribution Width 12.4 % (11.5-14.5); Red Blood Cell (RBC) Count 4.59 mill/uL (4.20-5.40)
[2020-03-14 06:58] LABS: Anion Gap 13 mmol/L (10-20); BUN (Urea Nitrogen) 8 mg/dL (9.8-20.1); Calc. Creatinine Clearance 80 mL/min (70-130); Calcium 8.2 mg/dL (7.8-10.44); Carbon Dioxide 20 mmol/L (23-31); Chloride 107 mmol/L (98-107); Glucose 132 mg/dL (83-110); Potassium 3.6 mmol/L (3.5-5.1); Sodium 136 mmol/L (136-145)
[2020-03-14] MEDS ORDERED: Nitrofurantoin Monohyd/M-Cryst 100 MG CAP PO SCH (09:00)
[2020-03-14] MEDS: Famotidine 20 MG TAB PO SCH ×2 (09:04→21:08)
[2020-03-14] MEDS: Ascorbic Acid 500 mg Chewable Tablet PO SCH (09:04)
[2020-03-14] MEDS: Zinc Sulfate 220 MG CAP PO SCH (09:04)
[2020-03-14] MEDS ORDERED: Ondansetron PF 4 MG/2 ML Vial IVP PRN (10:52)
[2020-03-14] MEDS: Sodium Chloride 0.9% 1,000 ML IV SCH ×2 (11:47→21:42)
[2020-03-14] MEDS: Dexamethasone 6 MG in Sodium Chloride 0.9% 50 ML IVPB SCH (11:47)
[2020-03-14] MEDS ORDERED: REMDESIVIR (EUA) 200 MG in Sodium Chloride 0.9% 250 ML 210 ML IV SCH (15:30)
--- NOTE | 2020-03-14 19:08 | PDOC.HOSPP ---
- Subjective Encounter Date: 03/14/20 Encounter Time: 11:30 Subjective: Patient seen for follow-up regarding acute hypoxic respiratory failure. She denies chest pain or shortness of breath. - Objective Vital Signs & Weight: Vital Signs (12 hours) Temp Pulse Resp BP Pulse Ox 03/14/20 12:00 98.8 F 92 28 H 161/75 H 93 L 03/14/20 09:00 98.5 F 108 H 36 H 167/81 H 86 L 03/14/20 08:00 98.5 F 108 H 76 L Weight Weight 147 lb 11.2 oz I&O: 03/13/20 03/14/20 03/15/20 06:59 06:59 06:59 Intake Total 3295 2830 240 Output Total 1150 1530 900 Balance 2145 1300 -660 Result Diagrams: 03/14/20 06:08 03/14/20 06:08 Additional Labs: Labs and MAR reviewed by la Hospitalist ROS - Review of Systems Respiratory: reports: cough, dry, SOB with excertion. denies: shortness of breath, hemoptysis, pleuritic pain, sputum, wheezing Cardiovascular: denies: chest pain, palpitations, orthopnea, paroxysmal noc. dyspnea, edema, light headedness Gastrointestinal: reports: diarrhea. denies: nausea, vomiting, abdominal pain, constipation, melena, hematochezia - Medication Medications: Active Medications Generic Name Dose Route Start Last Admin Trade Name Freq PRN Reason Stop Dose Admin Acetaminophen 650 mg 03/09/20 14:24 03/13/20 23:39 Acetaminophen 325 Mg Tab PO 650 mg Q4H PRN Administration Headache/Fever/Mild Pain (1-3) Acetaminophen 650 mg 03/09/20 14:24 03/10/20 23:15 Acetaminophen 650 Mg Suppository [place] 650 mg Q4H PRN Administration Headache/Fever/Mild Pain (1-3) Amlodipine Besylate 5 mg 03/10/20 21:00 03/13/20 20:35 Amlodipine 5 Mg Tab PO Not Given HS DAVID Ascorbic Acid 1,000 mg 03/10/20 09:00 03/14/20 09:04 Ascorbic Acid 500 Mg Chewable Tablet PO 1,000 mg DAILY DAVID Administration Famotidine 20 mg 03/09/20 21:00 03/14/20 09:04 Famotidine 20 Mg Tab PO 20 mg BID DAVID Administration Guaifenesin/Dextromethorphan 15 ml 03/14/20 04:49 03/14/20 16:47 Guaifenesin Dm 100-10/5 Ml Udcup PO 15 ml Q4H PRN Administration Cough Sodium Chloride 1,000 mls @ 75 mls/hr 03/09/20 14:30 03/14/20 11:47 Normal Saline 0.9% IV 1,000 mls .[id number] DAVID Administration Dexamethasone 6 mg/ Sodium 50.6 mls @ 100 mls/hr 03/14/20 12:00 03/14/20 11:47 Chloride IVPB 50.6 mls Q24H DAVID Administration Nitrofurantoin Macrocrystals 100 mg 03/14/20 09:00 03/14/20 09:15 Nitrofurantoin Monohyd/M-Cryst 100 Mg Cap PO 100 mg BID DAVID Administration Ondansetron HCl 4 mg 03/14/20 10:52 03/14/20 11:44 Ondansetron Pf 4 Mg/2 Ml Vial IVP 4 mg Q6H PRN Administration Nausea/Vomiting Pantoprazole Sodium 40 mg 03/10/20 09:00 03/14/20 09:04 Pantoprazole 40 Mg Tab PO 40 mg DAILY DAVID Administration Zinc Sulfate 220 mg 03/10/20 09:00 03/14/20 09:04 Zinc Sulfate 220 Mg Cap PO 220 mg DAILY DAVID Administration - Exam General Appearance: awake alert Eye: anicteric sclera ENT: moist mucosa Neck: supple Heart: RRR Respiratory: rhonchi Gastrointestinal: soft, non-tender Skin: no rashes Psychiatric: normal affect Hosp A/P - Plan Hosp A/P (1) acute hypoxic respiratory failure Status: Acute (2) COVID-19 virus detected Code(s): U07.1 - COVID-19 Status: Acute (3) UTI (urinary tract infection) Status: Acute (4) Hypertension Code(s): I10 - ESSENTIAL (PRIMARY) HYPERTENSION Status: Chronic Qualifiers: Hypertension type: essential hypertension Qualified Code(s): I10 - Essential (primary) hypertension (5) KG (acute kidney injury) Code(s): N17.9 - ACUTE KIDNEY FAILURE, UNSPECIFIED Status: Resolved (2) Diarrhea Code(s): R19.7 - DIARRHEA, UNSPECIFIED Status: Resolved Qualifiers: Diarrhea type: presumed infectious Qualified Code(s): R19.7 - Diarrhea, unspecified - Plan Patient was switched to levofloxacin for E. coli UTI. Patient developed hypoxemia earlier today, likely secondary to COVID-19 infection. Check chest x-ray. Start dexamethasone. Consult pharmacy regarding remdesivir therapy. Convalescent plasma therapy. Continue vitamin C and zinc. Son updated over the telephone.
[2020-03-14] MEDS ORDERED: Promethazine HCl 25 MG/ML VIAL IM/IV PRN (19:11)
--- NOTE | 2020-03-14 19:44 | RAD ---
Exam: Chest one view HISTORY:Dyspnea. COVID positive patient. Hypoxia Comparison: 03/09/2020. FINDINGS: Cardiac silhouette:Stable cardiomegaly Aorta: Stable atherosclerosis Pulmonary vessels: Normal Costophrenic angles: Clear LUNGS: Interval development of multi lobar interstitial and alveolar lung parenchymal opacification. Pneumothorax: None Osseous abnormalities: None IMPRESSION: Interval multi lobar COVID pneumonia.
[2020-03-14] MEDS: Amlodipine 5 MG TAB PO SCH (21:08)
[2020-03-14] MEDS: Acetaminophen 325 MG TAB PO PRN (21:40)
[2020-03-15] MEDS: Sodium Chloride 0.9% 1,000 ML IV SCH ×2 (04:55→22:01)
[2020-03-15] MEDS: Acetaminophen 325 MG TAB PO PRN (04:55)
[2020-03-15] MEDS ORDERED: Promethazine HCl 25 MG in Sodium Chloride 0.9% 50 ML IVPB PRN (05:18)
[2020-03-15 07:07] LABS: Actual Bicarbonate (HCO3a) 20.6 mEq/L (22-28); Base Excess (BEa) -2.7 mEq/L (-2.0 to +3.0); CO2 Tension 31.7 mmHg (35.0-45.0); Carboxyhemoglobin (COHb) 0.5 gm% (0.0-3.0); Hemoglobin (Hb) 14.4 g/dL (12.0-16.0); Potassium - ABG Lab 3.31 mmol/L (3.70-5.30); pH, Arterial 7.43 (7.35-7.45)
[2020-03-15 07:08] LABS: O2 Tension (PaO2), arterial 57.6 mmHg (> 70.0); Puncture Site RRA
[2020-03-15 07:09] LABS: ALV-art Gradient 401.875 mmHg (0-20)
[2020-03-15] MEDS ORDERED: Lorazepam 2 MG/ML VIAL SLOW IVP SCH (07:45)
[2020-03-15] MEDS ORDERED: Lorazepam 2 MG/ML VIAL ONE (08:38)
[2020-03-15] MEDS ORDERED: Morphine 4 MG/ML VIAL ONE (08:39)
[2020-03-15 09:23] LABS: Actual Bicarbonate (HCO3a) 21.6 mEq/L (22-28); Base Excess (BEa) -3.6 mEq/L (-2.0 to +3.0); CO2 Tension 39.6 mmHg (35.0-45.0); Carboxyhemoglobin (COHb) 0.1 gm% (0.0-3.0); Hemoglobin (Hb) 13.4 g/dL (12.0-16.0); O2 Tension (PaO2), arterial 61.7 mmHg (> 70.0); Potassium - ABG Lab 3.15 mmol/L (3.70-5.30); pH, Arterial 7.36 (7.35-7.45)
[2020-03-15 09:24] LABS: Puncture Site RRA
[2020-03-15] MEDS ORDERED: Propofol 1,000 MG/100 ML VIAL IV ONE (09:32)
[2020-03-15] MEDS ORDERED: Dextrose 50% Abboject 50 ML SYRINGE SLOW IVP PRN (10:15)
[2020-03-15] MEDS ORDERED: Dextrose 5% in Water 1,000 ML IV PRN (10:15)
[2020-03-15] MEDS ORDERED: Fentanyl BOLUS 250 ML IVPB PRN (13:45)
[2020-03-15] MEDS: Ascorbic Acid 500 mg Chewable Tablet PO SCH (13:45)
[2020-03-15] MEDS ORDERED: Morphine 2 MG/ML VIAL SLOW IVP PRN (13:45)
[2020-03-15] MEDS ORDERED: DISCONTINUE PREVIOUS NARCOTIC PAIN MEDICATIONS AND BENZODIAZEPINES FS SCH (13:45)
[2020-03-15] MEDS: Famotidine 20 MG TAB PO SCH ×2 (13:45→20:19)
[2020-03-15] MEDS ORDERED: Propofol BOLUS 1,000 MG/100 ML VIAL IV PRN (13:45)
[2020-03-15] MEDS: Zinc Sulfate 220 MG CAP PO SCH (13:46)
[2020-03-15] MEDS: Lorazepam 2 MG/ML VIAL SLOW IVP PRN (15:20)
[2020-03-15] MEDS: REMDESIVIR (EUA) 100 MG in Sodium Chloride 0.9% 250 ML 230 ML IV SCH (16:26)
[2020-03-15] MEDS: Dexamethasone 6 MG in Sodium Chloride 0.9% 50 ML IVPB SCH (17:59)
--- NOTE | 2020-03-15 19:30 | PDOC.HOSPP ---
- Subjective Encounter Date: 03/15/20 Encounter Time: 11:00 Subjective: Patient seen for follow-up regarding acute hypoxic respiratory failure. Patient was seen a few times earlier today as well. She is currently intubated. - Objective Vital Signs & Weight: Vital Signs (12 hours) Temp Temp Pulse Pulse Resp Resp BP 03/15/20 18:00 16 03/15/20 16:00 97.6 F 16 03/15/20 15:27 68 125/83 03/15/20 14:00 16 03/15/20 12:00 98.2 F 16 03/15/20 11:00 98.4 F 03/15/20 09:18 118 H 03/15/20 09:00 98.4 F 65 50 H 03/15/20 08:00 98.4 F 109 H 32 H BP BP Pulse Ox Pulse Ox 03/15/20 18:00 03/15/20 16:00 03/15/20 15:27 03/15/20 14:00 03/15/20 12:00 03/15/20 11:00 03/15/20 09:18 03/15/20 09:00 147/72 H 85 L 03/15/20 08:00 152/84 H 92 L Weight Admit Weight 147 lb 11.2 oz Weight 147 lb 11.2 oz Most Recent Monitor Data Heart Rate from ECG 55 NIBP 109/55 NIBP BP-Mean 73 Respiration from ECG 15 SpO2 100 I&O: 03/14/20 03/15/20 03/16/20 06:59 06:59 06:59 Intake Total 2830 2640 Output Total 1530 2375 225 Balance 1300 265 -225 Result Diagrams: 03/14/20 06:08 03/14/20 06:08 Additional Labs: I reviewed patient's labs and MAR EKG Reviewed by me: Yes (Normal sinus rhythm on telemetry) Hospitalist ROS - Review of Systems ROS unobtainable: due to endotracheal tube - Medication Medications: Active Medications Generic Name Dose Route Start Last Admin Trade Name Freq PRN Reason Stop Dose Admin Acetaminophen 650 mg 03/09/20 14:24 03/15/20 04:55 Acetaminophen 325 Mg Tab PO 650 mg Q4H PRN Administration Headache/Fever/Mild Pain (1-3) Acetaminophen 650 mg 03/09/20 14:24 03/10/20 23:15 Acetaminophen 650 Mg Suppository [place] 650 mg Q4H PRN Administration Headache/Fever/Mild Pain (1-3) Amlodipine Besylate 5 mg 03/10/20 21:00 03/14/20 21:08 Amlodipine 5 Mg Tab PO 5 mg HS DAVID Administration Ascorbic Acid 1,000 mg 03/10/20 09:00 03/15/20 13:45 Ascorbic Acid 500 Mg Chewable Tablet PO Not Given DAILY DAVID Famotidine 20 mg 03/09/20 21:00 03/15/20 13:45 Famotidine 20 Mg Tab PO Not Given BID DAVID Guaifenesin/Dextromethorphan 15 ml 03/14/20 04:49 03/14/20 16:47 Guaifenesin Dm 100-10/5 Ml Udcup PO 15 ml Q4H PRN Administration Cough Sodium Chloride 1,000 mls @ 75 mls/hr 03/09/20 14:30 03/15/20 04:55 Normal Saline 0.9% IV 1,000 mls .[id number] DAVID Administration Dexamethasone 6 mg/ Sodium 50.6 mls @ 100 mls/hr 03/14/20 12:00 03/15/20 17:59 Chloride IVPB 50.6 mls Q24H DAVID Administration Remdesivir 100 mg/ Sodium 250 mls @ 250 mls/hr 03/15/20 15:00 03/15/20 16:26 Chloride IV 03/18/20 15:59 250 mls 1500 DAVID Administration Levofloxacin 500 mg/ Device 100 mls @ 100 mls/hr 03/14/20 20:00 03/14/20 21:41 IVPB 100 mls Q24HR DAVID Administration Promethazine HCl 25 mg/ Sodium 51 mls @ 204 mls/hr 03/15/20 05:18 03/15/20 05:45 Chloride IVPB 51 mls Q6H PRN Administration Nausea/Vomiting Lorazepam 2 mg 03/15/20 13:45 03/15/20 15:20 Lorazepam 2 Mg/Ml Vial SLOW IVP 04/14/20 13:45 2 mg Q1H PRN Administration Breakthrough agitation Pantoprazole Sodium 40 mg 03/10/20 09:00 03/15/20 13:45 Pantoprazole 40 Mg Tab PO Not Given DAILY [facility] Zinc Sulfate 220 mg 03/10/20 09:00 03/15/20 13:46 Zinc Sulfate 220 Mg Cap PO Not Given DAILY DAVID - Exam General - other findings: Intubated Eye: anicteric sclera ENT: normocephalic atraumatic Neck: no thyromegaly Heart: RRR Respiratory: rhonchi Skin: no rashes Psychiatric - other findings: Unable to assess Hosp A/P - Plan Hosp A/P (1) acute hypoxic respiratory failure Status: Acute (2) COVID-19 virus detected Code(s): U07.1 - COVID-19 Status: Acute (3) UTI (urinary tract infection) Status: Acute (4) Hypertension Code(s): I10 - ESSENTIAL (PRIMARY) HYPERTENSION Status: Chronic Qualifiers: Hypertension type: essential hypertension Qualified Code(s): I10 - Essential (primary) hypertension (5) KG (acute kidney injury) Code(s): N17.9 - ACUTE KIDNEY FAILURE, UNSPECIFIED Status: Resolved (2) Diarrhea Code(s): R19.7 - DIARRHEA, UNSPECIFIED Status: Resolved Qualifiers: Diarrhea type: presumed infectious Qualified Code(s): R19.7 - Diarrhea, u nspecified - Plan Patient intubated and mechanically ventilated, in CCU. Patient on remdesivir therapy. Patient received convalescent plasma. Continue IV levofloxacin for UTI. Continue vitamin C and zinc. Patient son updated over the telephone following intubation.
[2020-03-15] MEDS: Amlodipine 5 MG TAB PO SCH (21:50)
--- NOTE | 2020-03-15 22:24 | CON ---
DATE OF CONSULTATION: 03/15/2020 HISTORY OF PRESENT ILLNESS: Radha Yoder is 79-year-old female who was admitted with a diarrhea, illness after a fall. She was diagnosed as having a positive COVID screen 2 days prior. She is admitted on nadja. She is now intubated. I was consulted. PAST MEDICAL HISTORY: Remarkable for hypertension and herniorrhaphy. SOCIAL HISTORY: She is a nonsmoker and nondrinker. ALLERGIES: NO DRUG ALLERGIES. FAMILY HISTORY: Negative. PHYSICAL EXAMINATION: VITAL SIGNS: Heart rate 67, blood pressure is 112/61, respiratory rates in the teens. HEAD AND NECK: Unremarkable. LUNGS: Remarkable for distant breath sounds. HEART: Regular rhythm. ABDOMEN: Soft. EXTREMITIES: Without asymmetry. LABORATORY DATA: Blood gas today, 7.36, CO2 of 39, pO2 of 61, rate of 16, 100% oxygen. PEEP was set at 8. IMPRESSION: Respiratory failure associated with coronavirus disease pneumonia. PLAN: We will adjust mechanical ventilation and try to minimize FiO2. This is a 50 min visit with greater than 50% of the time spent on the unit with coordination of care. Job ID: [id number] MTDD
[2020-03-16] MEDS: Propofol 1,000 MG/100 ML VIAL IV PRN ×2 (07:22→17:49)
[2020-03-16 07:30] LABS: Base Excess (BEa) -2.3 mEq/L (-2.0 to +3.0); CO2 Tension 31.9 mmHg (35.0-45.0); Calcium, Ionized (arterial) 1.22 mmol/L (1.12-1.30); Carboxyhemoglobin (COHb) 0.1 gm% (0.0-3.0); Hemoglobin (Hb) 13.1 g/dL (12.0-16.0); O2 Tension (PaO2), arterial 112.2 mmHg (> 70.0); Potassium - ABG Lab 3.93 mmol/L (3.70-5.30); pH, Arterial 7.44 (7.35-7.45)
[2020-03-16 08:06] LABS: Puncture Site RRA
[2020-03-16 08:07] LABS: ALV-art Gradient 489.625 mmHg (0-20)
[2020-03-16] MEDS: Zinc Sulfate 220 MG CAP PO SCH (11:04)
[2020-03-16] MEDS: Famotidine 20 MG TAB PO SCH (11:04)
[2020-03-16] MEDS: Dexamethasone 6 MG in Sodium Chloride 0.9% 50 ML IVPB SCH (11:04)
[2020-03-16] MEDS: Ascorbic Acid 500 mg Chewable Tablet PO SCH (14:27)
[2020-03-16] MEDS: Sodium Chloride 0.9% 1,000 ML IV SCH (14:27)
[2020-03-16] MEDS: REMDESIVIR (EUA) 100 MG in Sodium Chloride 0.9% 250 ML 230 ML IV SCH (14:28)
--- NOTE | 2020-03-16 15:58 | PRG ---
DATE OF SERVICE: 03/16/2020 SUBJECTIVE: Ms. Yoder is clinically changed very little. OBJECTIVE: VITAL SIGNS: Heart rates in the 70s, blood pressure 119/64, respiratory rate 16, oximetry is 99%. LUNGS: Remarkable for equal breath sounds. HEART: Regular rhythm. ABDOMEN: Soft without guarding. EXTREMITIES: Asymmetry. LABORATORY DATA: White count 10, hemoglobin 3.3, platelets 164. Sodium 136, potassium 3.6, chloride 107, bicarb 20, BUN 8, and creatinine 0.6. PH 7.44, CO2 of 31, pO2 of 112. IMPRESSION: COVID pneumonia; respiratory failure, currently not weanable. We will continue to support her. Her pH is 7.44, CO2 of 31, pO2 of 112. We will try to keep her FiO2 down. Critical care time 30 min. Job ID: [id number] MTDD
--- NOTE | 2020-03-16 17:23 | PDOC.HOSPP ---
- Subjective Encounter Date: 03/16/20 Encounter Time: 12:00 Subjective: Patient seen for follow-up regarding acute hypoxic respiratory failure. Intubated and mechanically ventilated, could not complete review of systems. - Objective Vital Signs & Weight: Vital Signs (12 hours) Temp Pulse Resp BP 03/16/20 16:00 16 03/16/20 14:00 17 03/16/20 13:54 71 123/62 03/16/20 12:00 95.9 F L 16 03/16/20 10:59 79 115/63 03/16/20 10:00 16 03/16/20 08:00 16 03/16/20 07:09 66 116/69 03/16/20 06:00 16 Weight Admit Weight 147 lb 11.2 oz Weight 147 lb 11.2 oz Most Recent Monitor Data Heart Rate from ECG 71 NIBP 104/51 NIBP BP-Mean 68 Respiration from ECG 14 SpO2 100 I&O: 03/15/20 03/16/20 03/17/20 06:59 06:59 06:59 Intake Total 2640 1128.4 230 Output Total 2375 535 186 Balance 265 593.4 44 Result Diagrams: 03/14/20 06:08 03/14/20 06:08 Additional Labs: Accuchecks 03/16/20 03/16/20 03/15/20 10:52 06:28 23:33 POC Glucose 136 H 133 H 149 H 03/15/20 20:46 POC Glucose 129 H EKG Reviewed by me: Yes (I reviewed patient's labs and MAR) Hospitalist ROS - Review of Systems ROS unobtainable: due to endotracheal tube - Medication Medications: Active Medications Generic Name Dose Route Start Last Admin Trade Name Freq PRN Reason Stop Dose Admin Acetaminophen 650 mg 03/09/20 14:24 03/15/20 04:55 Acetaminophen 325 Mg Tab PO 650 mg Q4H PRN Administration Headache/Fever/Mild Pain (1-3) Acetaminophen 650 mg 03/09/20 14:24 03/10/20 23:15 Acetaminophen 650 Mg Suppository [place] 650 mg Q4H PRN Administration Headache/Fever/Mild Pain (1-3) Amlodipine Besylate 5 mg 03/10/20 21:00 03/15/20 21:50 Amlodipine 5 Mg Tab PO Not Given HS [facility] Ascorbic Acid 1,000 mg 03/10/20 09:00 03/16/20 14:27 Ascorbic Acid 500 Mg Chewable Tablet PO 1,000 mg DAILY DAVID Administration Guaifenesin/Dextromethorphan 15 ml 03/14/20 04:49 03/14/20 16:47 Guaifenesin Dm 100-10/5 Ml Udcup PO 15 ml Q4H PRN Administration Cough Sodium Chloride 1,000 mls @ 75 mls/hr 03/09/20 14:30 03/16/20 14:27 Normal Saline 0.9% IV 1,000 mls .[id number] DAVID Administration Dexamethasone 6 mg/ Sodium 50.6 mls @ 100 mls/hr 03/14/20 12:00 03/16/20 11:04 Chloride IVPB 50.6 mls Q24H DAVID Administration Remdesivir 100 mg/ Sodium 250 mls @ 250 mls/hr 03/15/20 15:00 03/16/20 14:28 Chloride IV 03/18/20 15:59 250 mls 1500 DAVID Administration Levofloxacin 500 mg/ Device 100 mls @ 100 mls/hr 03/14/20 20:00 03/15/20 20:19 IVPB 100 mls Q24HR DAVID Administration Promethazine HCl 25 mg/ Sodium 51 mls @ 204 mls/hr 03/15/20 05:18 03/15/20 05:45 Chloride IVPB 51 mls Q6H PRN Administration Nausea/Vomiting Lorazepam 2 mg 03/15/20 13:45 03/15/20 15:20 Lorazepam 2 Mg/Ml Vial SLOW IVP 04/14/20 13:45 2 mg Q1H PRN Administration Breakthrough agitation Pantoprazole Sodium 40 mg 03/10/20 09:00 03/16/20 11:04 Pantoprazole 40 Mg Tab PO 40 mg DAILY DAVID Administration Propofol 1,000 mg 03/15/20 13:45 03/16/20 07:22 Propofol 1,000 Mg/100 Ml Vial IV 04/14/20 13:45 1,000 mg INF PRN Administration TO ACHIEVE GOAL RASS Protocol Zinc Sulfate 220 mg 03/10/20 09:00 03/16/20 11:04 Zinc Sulfate 220 Mg Cap PO 220 mg DAILY DAVID Administration - Exam General - other findings: Intubated ENT: normocephalic atraumatic Heart: RRR Respiratory: rhonchi Gastrointestinal: soft Skin: no rashes Psychiatric - other findings: Unable to assess Hosp A/P - Plan Hosp A/P (1) acute hypoxic respiratory failure Status: Acute (2) COVID-19 virus detected Code(s): U07.1 - COVID-19 Status: Acute (3) UTI (urinary tract infection) Status: Acute (4) Hypertension Code(s): I10 - ESSENTIAL (PRIMARY) HYPERTENSION Status: Chronic Qualifiers: Hypertension type: essential hypertension Qualified Code(s): I10 - Essential (primary) hypertension (5) KG (acute kidney injury) Code(s): N17.9 - ACUTE KIDNEY FAILURE, UNSPECIFIED Status: Resolved (2) Diarrhea Code(s): R19.7 - DIARRHEA, UNSPECIFIED Status: Resolved Qualifiers: Diarrhea type: presumed infectious Qualified Code(s): R19.7 - Diarrhea, unspecified - Plan Continue mechanical ventilation in CCU. Continue remdesivir. Patient received convalescent plasma. Continue IV levofloxacin for UTI. Continue vitamin C and zinc. Patient son updated over the telephone.
[2020-03-16] MEDS: Amlodipine 5 MG TAB PO SCH (20:47)
[2020-03-16] MEDS: Enoxaparin Sodium 40 MG/0.4 ML SYRINGE SC SCH (20:47)
[2020-03-16] MEDS: HumaLOG 300 UNITS/3 ML VIAL SC PRN (23:20)
[2020-03-17] MEDS: Propofol 1,000 MG/100 ML VIAL IV PRN ×3 (03:23→22:00)
[2020-03-17] MEDS: fentaNYL Citrate/PF 2,000 MCG in Sodium Chloride 0.9% 60 ML IV SCH (05:08)
[2020-03-17] MEDS: HumaLOG 300 UNITS/3 ML VIAL SC PRN ×3 (06:19→18:21)
[2020-03-17] MEDS: Sodium Chloride 0.9% 1,000 ML IV SCH ×2 (07:29→13:22)
[2020-03-17] MEDS: Zinc Sulfate 220 MG CAP PO SCH (07:58)
[2020-03-17] MEDS: Ascorbic Acid 500 mg Chewable Tablet PO SCH (07:58)
[2020-03-17] MEDS: Enoxaparin Sodium 40 MG/0.4 ML SYRINGE SC SCH ×2 (07:58→19:43)
--- NOTE | 2020-03-17 08:19 | PDOC.FMACP ---
Advance Care Planning - Problem (1) Palliative care encounter Status: Acute Code(s): Z51.5 - ENCOUNTER FOR PALLIATIVE CARE (2) COVID-19 virus detected Status: Acute Code(s): U07.1 - COVID-19 (3) Elevated troponin I level Status: Acute Code(s): R77.8 - OTHER SPECIFIED ABNORMALITIES OF PLASMA PROTEINS - Note Participants: family, palliative care Summary: Palliative care Advanced Care Planning with patient family. The diagnosis, prognosis and goals of care were discussed. Appropriate forms and documentation to accomplish the goals of care were discussed. All questions were answered. *Patient spouse, son and daughter agreed to transition patient to [facility] *Reviewed patient prognosis, and "what would she want" *Document completed, placed on chart. *Notified attending physician and ship's electronic warfare officer Please also refer to Palliative Care notes in note section Time Spent (mins): 15
[2020-03-17] MEDS: Insulin Glargine 5 UNITS in Pre-Filled Syringe 1 EACH SC SCH (10:59)
[2020-03-17] MEDS: Dexamethasone 6 MG in Sodium Chloride 0.9% 50 ML IVPB SCH (11:00)
--- NOTE | 2020-03-17 14:24 | PDOC.HOSPP ---
- Subjective Encounter Date: 03/17/20 Encounter Time: 11:00 Subjective: Patient seen for follow-up regarding acute hypoxic respiratory failure. She is intubated, could not complete review of systems. - Objective Vital Signs & Weight: Vital Signs (12 hours) Temp Pulse Resp BP BP Pulse Ox 03/17/20 12:50 81 03/17/20 12:00 18 03/17/20 10:00 17 03/17/20 08:00 16 03/17/20 07:10 64 03/17/20 06:00 15 03/17/20 04:00 97.5 F L 70 17 124/65 98 03/17/20 02:49 71 118/66 Weight Admit Weight 147 lb 11.2 oz Weight 147 lb 11.2 oz Most Recent Monitor Data Heart Rate from ECG 75 NIBP 120/63 NIBP BP-Mean 82 Respiration from ECG 18 SpO2 98 I&O: 03/16/20 03/17/20 03/18/20 06:59 06:59 06:59 Intake Total 1128.4 2000 30 Output Total 535 661 175 Balance 593.4 1339 -145 Result Diagrams: 03/14/20 06:08 03/14/20 06:08 Additional Labs: Accuchecks 03/17/20 03/17/20 03/16/20 12:24 06:16 22:05 POC Glucose 201 H 190 H 173 H 03/16/20 18:02 POC Glucose 135 H I reviewed patient's labs and MAR EKG Reviewed by me: Yes (Normal sinus rhythm on telemetry) Hospitalist ROS - Review of Systems ROS unobtainable: due to endotracheal tube Cardiovascular: reports: other - Medication Medications: Active Medications Generic Name Dose Route Start Last Admin Trade Name Freq PRN Reason Stop Dose Admin Acetaminophen 650 mg 03/09/20 14:24 03/15/20 04:55 Acetaminophen 325 Mg Tab PO 650 mg Q4H PRN Administration Headache/Fever/Mild Pain (1-3) Acetaminophen 650 mg 03/09/20 14:24 03/10/20 23:15 Acetaminophen 650 Mg Suppository [place] 650 mg Q4H PRN Administration Headache/Fever/Mild Pain (1-3) Amlodipine Besylate 5 mg 03/10/20 21:00 03/16/20 20:47 Amlodipine 5 Mg Tab PO 5 mg HS DAVID Administration Ascorbic Acid 1,000 mg 03/10/20 09:00 03/17/20 07:58 Ascorbic Acid 500 Mg Chewable Tablet PO 1,000 mg DAILY DAVID Administration Enoxaparin Sodium 40 mg 03/16/20 21:00 03/17/20 07:58 Enoxaparin Sodium 40 Mg/0.4 Ml Syringe SC 40 mg 0900,2100 DAVID Administration Guaifenesin/Dextromethorphan 15 ml 03/14/20 04:49 03/14/20 16:47 Guaifenesin Dm 100-10/5 Ml Udcup PO 15 ml Q4H PRN Administration Cough Sodium Chloride 1,000 mls @ 75 mls/hr 03/09/20 14:30 03/17/20 13:22 Normal Saline 0.9% IV 1,000 mls .[id number] DAVID Administration Dexamethasone 6 mg/ Sodium 50.6 mls @ 100 mls/hr 03/14/20 12:00 03/17/20 11:00 Chloride IVPB 50.6 mls Q24H DAVID Administration Remdesivir 100 mg/ Sodium 250 mls @ 250 mls/hr 03/15/20 15:00 03/16/20 14:28 Chloride IV 03/18/20 15:59 250 mls 1500 DAVID Administration Levofloxacin 500 mg/ Device 100 mls @ 100 mls/hr 03/14/20 20:00 03/16/20 20:4 7 IVPB 100 mls Q24HR DAVID Administration Promethazine HCl 25 mg/ Sodium 51 mls @ 204 mls/hr 03/15/20 05:18 03/15/20 05:45 Chloride IVPB 51 mls Q6H PRN Administration Nausea/Vomiting Fentanyl Citrate 2,000 mcg/ 100 mls @ 0 mls/hr 03/15/20 13:45 03/17/20 05:08 Sodium Chloride IV 04/14/20 13:45 100 mls INF DAVID Administration Protocol Per Protocol Insulin Glargine 5 units/ 0.05 mls @ 0 mls/hr 03/17/20 09:00 03/17/20 10:59 Miscellaneous Medication SC 0.05 mls QAM DAVID Administration Insulin Human Lispro 0 units 03/15/20 10:15 03/17/20 14:05 Humalog 300 Units/3 Ml Vial SC 2 unit .MILD SLIDING SCALE PRN Administration Mild Correctional Scale Lorazepam 2 mg 03/15/20 13:45 03/15/20 15:20 Lorazepam 2 Mg/Ml Vial SLOW IVP 04/14/20 13:45 2 mg Q1H PRN Administration Breakthrough agitation Pantoprazole Sodium 40 mg 03/10/20 09:00 03/17/20 07:59 Pantoprazole 40 Mg Tab PO 40 mg DAILY DAVID Administration Propofol 1,000 mg 03/15/20 13:45 03/17/20 10:59 Propofol 1,000 Mg/100 Ml Vial IV 04/14/20 13:45 1,000 mg INF PRN Administration TO ACHIEVE GOAL RASS Protocol Zinc Sulfate 220 mg 03/10/20 09:00 03/17/20 07:58 Zinc Sulfate 220 Mg Cap PO 220 mg DAILY DAVID Administration - Exam General - other findings: Intubated ENT: normocephalic atraumatic Neck: no lymphadenopathy Heart: RRR Respiratory: rhonchi Gastrointestinal: soft Skin: no rashes Psychiatric - other findings: Unable to assess Hosp A/P - Plan Hosp A/P (1) acute hypoxic respiratory failure Status: Acute (2) COVID-19 virus detected Code(s): U07.1 - COVID-19 Status: Acute (3) UTI (urinary tract infection) Status: Acute (4) Hypertension Code(s): I10 - ESSENTIAL (PRIMARY) HYPERTENSION Status: Chronic Qualifiers: Hypertension type: essential hypertension Qualified Code(s): I10 - Essential (primary) hypertension (5) KG (acute kidney injury) Code(s): N17.9 - ACUTE KIDNEY FAILURE, UNSPECIFIED Status: Resolved (2) Diarrhea Code(s): R19.7 - DIARRHEA, UNSPECIFIED Status: Resolved Qualifiers: Diarrhea type: presumed infectious Qualified Code(s): R19.7 - Diarrhea, unspecified - Plan Continue mechanical ventilation in CCU. FiO2 has improved to 50%, patient was a 90% yesterday morning. Patient is on remdesivir. Patient received convalescent plasma. Continue IV levofloxacin for UTI. Patient is on vitamin C and zinc. Patient son updated over the telephone.
[2020-03-17] MEDS: REMDESIVIR (EUA) 100 MG in Sodium Chloride 0.9% 250 ML 230 ML IV SCH (16:14)
--- NOTE | 2020-03-17 17:52 | PRG ---
DATE OF SERVICE: 03/17/2020 SUBJECTIVE: Radha Yoder remains stable. OBJECTIVE: VITAL SIGNS: Heart rates in 60s, blood pressure 120/69, respiratory rate is 15. Her intake and outputs, positive 1339. LUNGS: Remarkable for coarse equal breath sounds. HEART: Regular rhythm. ABDOMEN: Soft. LABORATORY DATA: White count 10, hemoglobin 13.3, platelets 164. Glucoses have been less than 200. No electrolytes have been done since the . IMPRESSION: COVID pneumonia with respiratory failure, mechanically ventilated. She remains stable, but is not at a point where we consider weaning from mechanical ventilation yet. We will continue to try to minimize airway pressures, FiO2, support her nutritionally, keep her sedated. Critical care time 30 min. Job ID: [id number] MTDD
[2020-03-17] MEDS: Amlodipine 5 MG TAB PO SCH (19:43)
[2020-03-18] MEDS: HumaLOG 300 UNITS/3 ML VIAL SC PRN ×4 (00:14→23:12)
[2020-03-18 05:27] LABS: ALT (SGPT) 13 U/L (8-55); AST (SGOT) 17 U/L (5-34); Albumin 2.4 g/dL (3.4-4.8); Alkaline Phosphatase 70 U/L (40-110); Anion Gap 12 mmol/L (10-20); BUN (Urea Nitrogen) 37 mg/dL (9.8-20.1); Bilirubin, Direct 0.2 mg/dL (0.1-0.3); Bilirubin, Total 0.4 mg/dL (0.2-1.2); Calc. Creatinine Clearance 69 mL/min (70-130); Calcium 7.7 mg/dL (7.8-10.44); Carbon Dioxide 21 mmol/L (23-31); Chloride 111 mmol/L (98-107); Glucose 215 mg/dL (83-110); Potassium 4.3 mmol/L (3.5-5.1); Protein, Total 5.1 g/dL (6.0-8.3); Sodium 140 mmol/L (136-145)
[2020-03-18] MEDS: Propofol 1,000 MG/100 ML VIAL IV PRN ×3 (05:56→19:13)
[2020-03-18 06:04] LABS: Band 3 % (5-11); Hemoglobin 12.3 g/dL (12.0-16.0); Lymphocytes 2 % (21-51); MDiff Complete? YES; Mean Corpuscular HGB CONC 31.2 g/dL (32.0-36.0); Mean Corpuscular Hemoglobin 28.3 pg (27.0-31.0); Mean Corpuscular Volume 90.7 fL (78.0-98.0); Mean Platelet Volume 8.7 fL (7.4-10.4); Monocytes 6 % (0-10); Myelocyte 1 % (0-0); Neutrophil 88 % (42-75); Platelet Count 173 thou/uL (130-400); Platelet Morphology Comment Appears Adequate; RBC Distribution Width 12.7 % (11.5-14.5); RBC Morphology Normal; Red Blood Cell (RBC) Count 4.36 mill/uL (4.20-5.40); White Blood Cell (WBC) Count 11.3 thou/uL (4.8-10.8)
[2020-03-18] MEDS: Enoxaparin Sodium 40 MG/0.4 ML SYRINGE SC SCH ×2 (07:13→19:44)
[2020-03-18] MEDS: Zinc Sulfate 220 MG CAP PO SCH (07:13)
[2020-03-18] MEDS: Ascorbic Acid 500 mg Chewable Tablet PO SCH (07:14)
[2020-03-18] MEDS: Sodium Chloride 0.9% 1,000 ML IV SCH (07:16)
[2020-03-18] MEDS: Insulin Glargine 5 UNITS in Pre-Filled Syringe 1 EACH SC SCH (10:08)
[2020-03-18] MEDS: Pantoprazole 40 MG GRANULES PACKET PER TUBE SCH (10:10)
[2020-03-18] MEDS: fentaNYL Citrate/PF 2,000 MCG in Sodium Chloride 0.9% 60 ML IV SCH (10:10)
[2020-03-18] MEDS: Dexamethasone 6 MG in Sodium Chloride 0.9% 50 ML IVPB SCH (13:42)
[2020-03-18] MEDS: REMDESIVIR (EUA) 100 MG in Sodium Chloride 0.9% 250 ML 230 ML IV SCH (16:00)
--- NOTE | 2020-03-18 18:22 | PRG ---
DATE OF SERVICE: 03/18/2020 SUBJECTIVE: Radha Yoder is hemodynamically stable. OBJECTIVE: VITAL SIGNS: Heart rate is in the 60s, blood pressure 122/65, respiratory rates in the teens, oximetry is 96%, FiO2 is at 40%. LUNGS: Remarkable for coarse equal breath sounds. HEART: Regular rhythm. ABDOMEN: Soft. EXTREMITIES: Without edema. LABORATORY DATA: White count 11.3, hemoglobin 12.3, platelets 173. Sodium 140, potassium 4.3, chloride 111, bicarb , BUN 37, creatinine 0.7, glucose 215. There is no chest x-ray today. I have ordered one for tomorrow. IMPRESSION: COVID pneumonia with respiratory failure, clinically stable. Continue supportive care. Minimize airway pressures. Minimize FiO2. Hopefully start weaning within a few days. Critical care time 30 min. Job ID: [id number] MTDD
--- NOTE | 2020-03-18 18:45 | PDOC.HOSPP ---
- Subjective Encounter Date: 03/18/20 Encounter Time: 15:30 Subjective: Patient seen for follow-up regarding COVID-19 pneumonia. She is intubated, could not complete review of systems. - Objective Vital Signs & Weight: Vital Signs (12 hours) Temp Pulse Resp 03/18/20 18:00 15 03/18/20 16:00 97.1 F L 13 03/18/20 14:52 70 03/18/20 14:00 15 03/18/20 12:00 97.3 F L 16 03/18/20 11:54 72 03/18/20 10:00 18 03/18/20 08:00 97.7 F 17 03/18/20 07:21 77 Weight Admit Weight 147 lb 11.2 oz Weight 147 lb 11.2 oz Most Recent Monitor Data Heart Rate from ECG 67 NIBP 116/61 NIBP BP-Mean 79 Respiration from ECG 19 SpO2 91 I&O: 03/17/20 03/18/20 03/19/20 06:59 06:59 06:59 Intake Total 1999 1991 1719 Output Total 661 690 535 Balance 1339 1302 1185 Result Diagrams: 03/18/20 04:49 03/18/20 04:49 Additional Labs: Accuchecks 03/18/20 03/18/20 03/17/20 16:04 11:05 23:47 POC Glucose 138 H 176 H 194 H Labs and MAR reviewed by md Hospitalist ROS - Review of Systems ROS unobtainable: due to endotracheal tube - Medication Medications: Active Medications Generic Name Dose Route Start Last Admin Trade Name Freq PRN Reason Stop Dose Admin Acetaminophen 650 mg 03/09/20 14:24 03/15/20 04:55 Acetaminophen 325 Mg Tab PO 650 mg Q4H PRN Administration Headache/Fever/Mild Pain (1-3) Acetaminophen 650 mg 03/09/20 14:24 03/10/20 23:15 Acetaminophen 650 Mg Suppository MD 650 mg Q4H PRN Administration Headache/Fever/Mild Pain (1-3) Amlodipine Besylate 5 mg 03/10/20 21:00 03/17/20 19:43 Amlodipine 5 Mg Tab PO 5 mg HS DAVID Administration Ascorbic Acid 1,000 mg 03/10/20 09:00 03/18/20 07:14 Ascorbic Acid 500 Mg Chewable Tablet PO 1,000 mg DAILY DAVID Administration Enoxaparin Sodium 40 mg 03/16/20 21:00 03/18/20 07:13 Enoxaparin Sodium 40 Mg/0.4 Ml Syringe SC 40 mg 09,2100 DAVID Administration Guaifenesin/Dextromethorphan 15 ml 03/14/20 04:49 03/14/20 16:47 Guaifenesin Dm 100-10/5 Ml Udcup PO 15 ml Q4H PRN Administration Cough Sodium Chloride 1,000 mls @ 75 mls/hr 03/09/20 14:30 03/18/20 07:16 Normal Saline 0.9% IV 1,000 mls .[id number] DAVID Administration Dexamethasone 6 mg/ Sodium 50.6 mls @ 100 mls/hr 03/14/20 12:00 03/18/20 13:42 Chloride IVPB 50.6 mls Q24H DAVID Administration Levofloxacin 500 mg/ Device 100 mls @ 100 mls/hr 03/14/20 20:00 03/17/20 19:43 IVPB 100 mls Q24HR DAVID Administration Promethazine HCl 25 mg/ Sodium 51 mls @ 204 mls/hr 03/15/20 05:18 03/15/20 05:45 Chloride IVPB 51 mls Q6H PRN Administration Nausea/Vomiting Fentanyl Citrate 2,000 mcg/ 100 mls @ 0 mls/hr 03/15/20 13:45 03/18/20 10:10 Sodium Chloride IV 04/14/20 13:45 100 mls INF DAVID Administration Protocol Per Protocol Insulin Glargine 5 units/ 0.05 mls @ 0 mls/hr 03/17/20 09:00 03/18/20 10:08 Miscellaneous Medication SC 0.05 mls QAM DAVID Administration Insulin Human Lispro 0 units 03/15/20 10:15 03/18/20 13:43 Humalog 300 Units/3 Ml Vial SC 2 unit .MILD SLIDING SCALE PRN Administration Mild Correctional Scale Lorazepam 2 mg 03/15/20 13:45 03/15/20 15:20 Lorazepam 2 Mg/Ml Vial SLOW IVP 04/14/20 13:45 2 mg Q1H PRN Administration Breakthrough agitation Pantoprazole Sodium 40 mg 03/18/20 09:00 03/18/20 10:10 Pantoprazole 40 Mg Granules Packet PER TUBE 40 mg DAILY DAVID Administration Propofol 1,000 mg 03/15/20 13:45 03/18/20 07:13 Propofol 1,000 Mg/100 Ml Vial IV 04/14/20 13:45 1,000 mg INF PRN Administration TO ACHIEVE GOAL RASS Protocol Zinc Sulfate 220 mg 03/10/20 09:00 03/18/20 07:13 Zinc Sulfate 220 Mg Cap PO 220 mg DAILY DAVID Administration - Exam General - other findings: Intubated ENT: normocephalic atraumatic Neck - other findings: Normal sinus rhythm on telemetry Heart: RRR Respiratory: rhonchi Skin: no rashes Psychiatric - other findings: Could not assess Hosp A/P - Plan Hosp A/P (1) acute hypoxic respiratory failure Status: Acute (2) COVID-19 virus detected Code(s): U07.1 - COVID-19 Status: Acute (3) UTI (urinary tract infection) Status: Acute (4) Hypertension Code(s): I10 - ESSENTIAL (PRIMARY) HYPERTENSION Status: Chronic Qualifiers: Hypertension type: essential hypertension Qualified Code(s): I10 - Essentia l (primary) hypertension (5) KG (acute kidney injury) Code(s): N17.9 - ACUTE KIDNEY FAILURE, UNSPECIFIED Status: Resolved (2) Diarrhea Code(s): R19.7 - DIARRHEA, UNSPECIFIED Status: Resolved Qualifiers: Diarrhea type: presumed infectious Qualified Code(s): R19.7 - Diarrhea, unspecified - Plan Continue mechanical ventilation in CCU. FiO2 has improved to 40% Continue remdesivir. Patient received convalescent plasma. Continue IV levofloxacin for UTI. Patient is on vitamin C and zinc. Patient has a pessary in place. I discussed with hand mounter on-call. He recommended leaving it in place. Patient son updated over the telephone.
[2020-03-18] MEDS: Amlodipine 5 MG TAB PO SCH (19:44)
[2020-03-19] MEDS: Sodium Chloride 0.9% 1,000 ML IV SCH ×3 (00:04→23:20)
[2020-03-19] MEDS: Propofol 1,000 MG/100 ML VIAL IV PRN ×4 (02:36→22:55)
[2020-03-19 04:10] LABS: Anion Gap 11 mmol/L (10-20); BUN (Urea Nitrogen) 35 mg/dL (9.8-20.1); Calc. Creatinine Clearance 75 mL/min (70-130); Calcium 7.6 mg/dL (7.8-10.44); Carbon Dioxide 22 mmol/L (23-31); Chloride 111 mmol/L (98-107); Glucose 190 mg/dL (83-110); Potassium 4.2 mmol/L (3.5-5.1); Sodium 140 mmol/L (136-145)
[2020-03-19 04:14] LABS: Band 8 % (5-11); Hemoglobin 12.9 g/dL (12.0-16.0); Lymphocytes 2 % (21-51); MDiff Complete? YES; Mean Corpuscular HGB CONC 33.1 g/dL (32.0-36.0); Mean Corpuscular Hemoglobin 30.1 pg (27.0-31.0); Mean Corpuscular Volume 90.9 fL (78.0-98.0); Mean Platelet Volume 8.5 fL (7.4-10.4); Metamyelocyte 1 % (0-0); Monocytes 6 % (0-10); Neutrophil 83 % (42-75); Platelet Count 179 thou/uL (130-400); Platelet Morphology Comment Appears Adequate; RBC Distribution Width 12.8 % (11.5-14.5); Red Blood Cell (RBC) Count 4.28 mill/uL (4.20-5.40); White Blood Cell (WBC) Count 12.8 thou/uL (4.8-10.8)
[2020-03-19] MEDS: HumaLOG 300 UNITS/3 ML VIAL SC PRN (04:20)
[2020-03-19] MEDS: fentaNYL Citrate/PF 2,000 MCG in Sodium Chloride 0.9% 60 ML IV SCH ×2 (07:15→23:33)
[2020-03-19] MEDS: Ascorbic Acid 500 mg Chewable Tablet PO SCH (08:58)
[2020-03-19] MEDS: Pantoprazole 40 MG GRANULES PACKET PER TUBE SCH (08:58)
[2020-03-19] MEDS: Enoxaparin Sodium 40 MG/0.4 ML SYRINGE SC SCH ×2 (08:58→20:15)
[2020-03-19] MEDS: Zinc Sulfate 220 MG CAP PO SCH (08:59)
[2020-03-19] MEDS: Insulin Glargine 5 UNITS in Pre-Filled Syringe 1 EACH SC SCH (09:28)
--- NOTE | 2020-03-19 10:05 | RAD ---
AP CHEST: Date: 03/19/2020 HISTORY: CCU follow-up, on ventilator. COMPARISON: 03/14/2020. FINDINGS: ET tube and NG tube remain in place. The bilateral infiltrates show significant improvement when compared to 03/14/2020 exam. There is mil d vascular engorgement and some hazy bilateral infiltrates with small effusions and mild left basilar atelectasis. IMPRESSION: Significant improvement since prior exam. POS: AGW
[2020-03-19] MEDS: Dexamethasone 6 MG in Sodium Chloride 0.9% 50 ML IVPB SCH (11:54)
--- NOTE | 2020-03-19 18:03 | PRG ---
DATE OF SERVICE: 03/19/2020 SUBJECTIVE: Ms. Yoder remains mechanically ventilated. OBJECTIVE: VITAL SIGNS: She is afebrile, blood pressure 107/52, heart rate is 95, oximetry is 96%. Her pressure support is now at 10. Her PEEP is down to 5. LUNGS: Unchanged. HEART: Unchanged. ABDOMEN: Unchanged. LABORATORY DATA: Chest x-ray has improved. IMPRESSION: COVID pneumonia, clinically improving. She is approaching a point where she may be a candidate for spontaneous breathing. Job ID: [id number]
--- NOTE | 2020-03-19 19:17 | PDOC.HOSPP ---
- Subjective Encounter Date: 03/19/20 Encounter Time: 15:30 Subjective: Pt seen for followup re: ac hypoxic resp failure. Intubated. Could not complete ROS. - Objective Vital Signs & Weight: Vital Signs (12 hours) Temp Pulse Resp Pulse Ox 03/19/20 18:00 12 03/19/20 16:08 99.4 F 03/19/20 16:00 13 03/19/20 14:12 99 03/19/20 14:00 16 03/19/20 12:00 16 03/19/20 11:08 97.1 F L 03/19/20 10:23 79 03/19/20 10:00 14 03/19/20 08:00 12 94 L 03/19/20 07:40 98.0 F 03/19/20 07:20 83 Weight Admit Weight 147 lb 11.2 oz Weight 2.677 oz Most Recent Monitor Data Heart Rate from ECG 86 NIBP 90/48 NIBP BP-Mean 62 Respiration from ECG 16 SpO2 94 I&O: 03/18/20 03/19/20 03/20/20 06:59 06:59 06:59 Intake Total 1991 3462 1368 Output Total 690 1100 310 Balance 1302 2362 1058 Result Diagrams: 03/19/20 03:40 03/19/20 03:40 Additional Labs: Accuchecks 03/19/20 03/19/20 03/18/20 15:48 09:39 23:01 POC Glucose 146 H 167 H 187 H Hospitalist ROS - Review of Systems ROS unobtainable: due to endotracheal tube - Medication Medications: Active Medications Generic Name Dose Route Start Last Admin Trade Name Freq PRN Reason Stop Dose Admin Acetaminophen 650 mg 03/09/20 14:24 03/15/20 04:55 Acetaminophen 325 Mg Tab PO 650 mg Q4H PRN Administration Headache/Fever/Mild Pain (1-3) Acetaminophen 650 mg 03/09/20 14:24 03/10/20 23:15 Acetaminophen 650 Mg Suppository [place] 650 mg Q4H PRN Administration Headache/Fever/Mild Pain (1-3) Amlodipine Besylate 5 mg 03/10/20 21:00 03/18/20 19:44 Amlodipine 5 Mg Tab PO 5 mg HS DVAID Administration Ascorbic Acid 1,000 mg 03/10/20 09:00 03/19/20 08:58 Ascorbic Acid 500 Mg Chewable Tablet PO 1,000 mg DAILY DAVID Administration Enoxaparin Sodium 40 mg 03/16/20 21:00 03/19/20 08:58 Enoxaparin Sodium 40 Mg/0.4 Ml Syringe SC 40 mg 0900,2100 DAVID Administration Guaifenesin/Dextromethorphan 15 ml 03/14/20 04:49 03/14/20 16:47 Guaifenesin Dm 100-10/5 Ml Udcup PO 15 ml Q4H PRN Administration Cough Sodium Chloride 1,000 mls @ 75 mls/hr 03/09/20 14:30 03/19/20 08:59 Normal Saline 0.9% IV 1,000 mls .[id number] DAVID Administration Dexamethasone 6 mg/ Sodium 50.6 mls @ 100 mls/hr 03/14/20 12:00 03/19/20 11:54 Chloride IVPB 50.6 mls Q24H DAVID Administration Levofloxacin 500 mg/ Device 100 mls @ 100 mls/hr 03/14/20 20:00 03/18/20 19:45 IVPB 100 mls Q24HR DAVID Administration Promethazine HCl 25 mg/ Sodium 51 mls @ 204 mls/hr 03/15/20 05:18 03/15/20 05:45 Chloride IVPB 51 mls Q6H PRN Administration Nausea/Vomiting Fentanyl Citrate 2,000 mcg/ 100 mls @ 0 mls/hr 03/15/20 13:45 03/19/20 07:15 Sodium Chloride IV 04/14/20 13:45 100 mls INF DAVID Administration Protocol Per Protocol Insulin Glargine 5 units/ 0.05 mls @ 0 mls/hr 03/17/20 09:00 03/19/20 09:28 Miscellaneous Medication SC 0.05 mls QAM DAVID Administration Insulin Human Lispro 0 units 03/15/20 10:15 03/19/20 04:20 Humalog 300 Units/3 Ml Vial SC 2 unit .MILD SLIDING SCALE PRN Administration Mild Correctional Scale Lorazepam 2 mg 03/15/20 13:45 03/15/20 15:20 Lorazepam 2 Mg/Ml Vial SLOW IVP 04/14/20 13:45 2 mg Q1H PRN Administration Breakthrough agitation Pantoprazole Sodium 40 mg 03/18/20 09:00 03/19/20 08:58 Pantoprazole 40 Mg Granules Packet PER TUBE 40 mg DAILY DAVID Administration Propofol 1,000 mg 03/15/20 13:45 03/19/20 08:59 Propofol 1,000 Mg/100 Ml Vial IV 04/14/20 13:45 1,000 mg INF PRN Administration TO ACHIEVE GOAL RASS Protocol Zinc Sulfate 220 mg 03/10/20 09:00 03/19/20 08:59 Zinc Sulfate 220 Mg Cap PO 220 mg DAILY DAVID Administration - Exam General - other findings: Intubated ENT: normocephalic atraumatic Neck: no lymphadenopathy Heart: RRR Respiratory: rales, rhonchi Gastrointestinal: soft Skin: no rashes Psychiatric - other findings: Unable to assess Hosp A/P - Plan Hosp A/P (1) acute hypoxic respiratory failure Status: Acute (2) COVID-19 virus detected Code(s): U07.1 - COVID-19 Status: Acute (3) UTI (urinary tract infection) Status: Acute (4) Hypertension Code(s): I10 - ESSENTIAL (PRIMARY) HYPERTENSION Status: Chronic Qualifiers: Hypertension type: essential hypertension Qualified Code(s): I10 - Essential (primary) hypertension (5) KG (acute kidney injury) Code(s): N17.9 - ACUTE KIDNEY FAILURE, UNSPECIFIED Status: Resolved (2) Diarrhea Code(s): R19.7 - DIARRHEA, UNSPECIFIED Status: Resolved Qualifiers: Diarrhea type: presumed infectious Qualified Code(s): R19.7 - Diarrhea, unspecified - Plan Continue mechanical ventilation. Completed remdesivir. Patient received convalescent plasma. Continue IV levofloxacin for UTI. Continue vitamin C and zinc.
[2020-03-19] MEDS: Amlodipine 5 MG TAB PO SCH (23:20)
[2020-03-20 04:32] LABS: Band 19 % (5-11); Hemoglobin 11.7 g/dL (12.0-16.0); Hypochromia SLIGHT = 6-15 cells (100X) (0-5/hpf); MDiff Complete? YES; Mean Corpuscular HGB CONC 32.8 g/dL (32.0-36.0); Mean Corpuscular Hemoglobin 29.8 pg (27.0-31.0); Mean Corpuscular Volume 90.8 fL (78.0-98.0); Mean Platelet Volume 9.1 fL (7.4-10.4); Monocytes 10 % (0-10); Neutrophil 71 % (42-75); Platelet Count 164 thou/uL (130-400); Platelet Morphology Comment Appears Adequate; RBC Distribution Width 12.8 % (11.5-14.5); Red Blood Cell (RBC) Count 3.94 mill/uL (4.20-5.40)
[2020-03-20 04:39] LABS: Anion Gap 11 mmol/L (10-20); BUN (Urea Nitrogen) 39 mg/dL (9.8-20.1); Calc. Creatinine Clearance 0 mL/min (70-130); Calcium 7.5 mg/dL (7.8-10.44); Carbon Dioxide 22 mmol/L (23-31); Chloride 112 mmol/L (98-107); Glucose 170 mg/dL (83-110); Potassium 4.4 mmol/L (3.5-5.1); Sodium 141 mmol/L (136-145)
[2020-03-20] MEDS: HumaLOG 300 UNITS/3 ML VIAL SC PRN ×2 (04:54→23:55)
[2020-03-20] MEDS: Propofol 1,000 MG/100 ML VIAL IV PRN ×3 (05:01→11:12)
--- NOTE | 2020-03-20 07:54 | RAD ---
Exam: Chest one view HISTORY:Respiratory distress. Ventilated patient Comparison: 03/19/2020 FINDINGS: Lines and tubes: Endotracheal tube just beyond the clavicles. Nasogastric tube terminates in the epig astric region. Cardiac silhouette:Cardiomegaly Aorta: Atherosclerotic aortic knob. Pulmonary vessels: Normal Costophrenic angles: Clear LUNGS: Persistent multi focal interstitial and alveolar opacities. Pneumothorax: None Osseous abnormalities: None IMPRESSION: No significant interval change. Persistent multifocal interstitial and alveolar opacities .
[2020-03-20] MEDS: Insulin Glargine 5 UNITS in Pre-Filled Syringe 1 EACH SC SCH (08:06)
[2020-03-20] MEDS: Enoxaparin Sodium 40 MG/0.4 ML SYRINGE SC SCH ×2 (08:06→20:15)
[2020-03-20] MEDS: Ascorbic Acid 500 mg Chewable Tablet PO SCH (08:07)
[2020-03-20] MEDS: Zinc Sulfate 220 MG CAP PO SCH (08:07)
[2020-03-20] MEDS: Pantoprazole 40 MG GRANULES PACKET PER TUBE SCH (08:07)
--- NOTE | 2020-03-20 08:19 | PRG ---
DATE OF SERVICE: 03/20/2020 SUBJECTIVE: Radha Yoder remains hemodynamically stable and ventilated. OBJECTIVE: VITAL SIGNS: Heart rate is in 90s, respiratory rate is in the teens, FiO2 is 45%, blood pressure 114/64. LUNGS: Are distant, clear. HEART: Regular rhythm. ABDOMEN: Soft. LABORATORY DATA: White count 19, hemoglobin 11.7, and platelets 164. Sodium 141, potassium 4.4, chloride 112, bicarb 22, BUN 39, and creatinine 0.68. IMAGING STUDIES: Chest radiograph shows bilateral alveolar infiltrates that are unchanged. Intake and outputs, positive 2322. IMPRESSION: Respiratory failure associated with COVID. PLAN: Continue supportive care, slowly decrease ventilatory support. Critical care time 30 min. Job ID: [id number] MTDD
[2020-03-20] MEDS: Sodium Chloride 0.9% 1,000 ML IV SCH ×2 (10:14→22:07)
[2020-03-20] MEDS: Dexamethasone 6 MG in Sodium Chloride 0.9% 50 ML IVPB SCH (11:12)
[2020-03-20] MEDS: Lorazepam 2 MG/ML VIAL SLOW IVP PRN (13:30)
--- NOTE | 2020-03-20 15:51 | PDOC.HOSPP ---
- Subjective Encounter Date: 03/20/20 Encounter Time: 12:30 Subjective: Patient seen for follow-up regarding hypoxic respiratory failure. Could not complete review of systems secondary to intubated status. - Objective Vital Signs & Weight: Vital Signs (12 hours) Temp Pulse Resp Pulse Ox 03/20/20 14:29 93 03/20/20 14:00 25 H 03/20/20 12:00 98.8 F 23 H 03/20/20 10:54 83 03/20/20 10:00 18 03/20/20 08:00 97.8 F 17 94 L 03/20/20 07:36 85 03/20/20 06:00 17 03/20/20 05:00 97.5 F L 03/20/20 04:00 17 Weight Admit Weight 147 lb 11.2 oz Weight 171 lb 11.841 oz Most Recent Monitor Data Heart Rate from ECG 95 NIBP 130/62 NIBP BP-Mean 84 Respiration from ECG 23 SpO2 94 I&O: 03/19/20 03/20/20 03/21/20 06:59 06:59 06:59 Intake Total 3462 3057 200 Output Total 1100 735 380 Balance 2362 2322 -180 Result Diagrams: 03/20/20 04:00 03/20/20 04:00 Additional Labs: Accuchecks 03/20/20 03/19/20 03/19/20 09:59 22:16 15:48 POC Glucose 153 H 136 H 146 H Labs and MAR reviewed by nd Hospitalist ROS - Review of Systems ROS unobtainable: due to endotracheal tube - Medication Medications: Active Medications Generic Name Dose Route Start Last Admin Trade Name Freq PRN Reason Stop Dose Admin Acetaminophen 650 mg 03/09/20 14:24 03/15/20 04:55 Acetaminophen 325 Mg Tab PO 650 mg Q4H PRN Administration Headache/Fever/Mild Pain (1-3) Acetaminophen 650 mg 03/09/20 14:24 03/10/20 23:15 Acetaminophen 650 Mg Suppository [place] 650 mg Q4H PRN Administration Headache/Fever/Mild Pain (1-3) Amlodipine Besylate 5 mg 03/10/20 21:00 03/19/20 23:20 Amlodipine 5 Mg Tab PO Not Given HS DAVID Ascorbic Acid 1,000 mg 03/10/20 09:00 03/20/20 08:07 Ascorbic Acid 500 Mg Chewable Tablet PO 1,000 mg DAILY DAVID Administration Enoxaparin Sodium 40 mg 03/16/20 21:00 03/20/20 08:06 Enoxaparin Sodium 40 Mg/0.4 Ml Syringe SC 40 mg 0900,2100 DAVID Administration Guaifenesin/Dextromethorphan 15 ml 03/14/20 04:49 03/14/20 16:47 Guaifenesin Dm 100-10/5 Ml Udcup PO 15 ml Q4H PRN Administration Cough Sodium Chloride 1,000 mls @ 75 mls/hr 03/09/20 14:30 03/20/20 10:14 Normal Saline 0.9% IV 1,000 mls .[id number] DAVID Administration Dexamethasone 6 mg/ Sodium 50.6 mls @ 100 mls/hr 03/14/20 12:00 03/20/20 11:12 Chloride IVPB 50.6 mls Q24H DAVID Administration Levofloxacin 500 mg/ Device 100 mls @ 100 mls/hr 03/14/20 20:00 03/19/20 20:16 IVPB 100 mls Q24HR DAVID Administration Promethazine HCl 25 mg/ Sodium 51 mls @ 204 mls/hr 03/15/20 05:18 03/15/20 05:45 Chloride IVPB 51 mls Q6H PRN Administration Nausea/Vomiting Fentanyl Citrate 2,000 mcg/ 100 mls @ 0 mls/hr 03/15/20 13:45 03/19/20 23:33 Sodium Chloride IV 04/14/20 13:45 100 mls INF DAVID Administration Protocol Per Protocol Insulin Glargine 5 units/ 0.05 mls @ 0 mls/hr 03/17/20 09:00 03/20/20 08:06 Miscellaneous Medication SC 0.05 mls QAM DAVID Administration Insulin Human Lispro 0 units 03/15/20 10:15 03/20/20 04:54 Humalog 300 Units/3 Ml Vial SC 2 unit .MILD SLIDING SCALE PRN Administration Mild Correctional Scale Lorazepam 2 mg 03/15/20 13:45 03/15/20 15:20 Lorazepam 2 Mg/Ml Vial SLOW IVP 04/14/20 13:45 2 mg Q1H PRN Administration Breakthrough agitation Pantoprazole Sodium 40 mg 03/18/20 09:00 03/20/20 08:07 Pantoprazole 40 Mg Granules Packet PER TUBE 40 mg DAILY DAVID Administration Propofol 1,000 mg 03/15/20 13:45 03/20/20 11:12 Propofol 1,000 Mg/100 Ml Vial IV 04/14/20 13:45 1,000 mg INF PRN Administration TO ACHIEVE GOAL RASS Protocol Zinc Sulfate 220 mg 03/10/20 09:00 03/20/20 08:07 Zinc Sulfate 220 Mg Cap PO 220 mg DAILY DAVID Administration - Exam General - other findings: Intubated ENT: normocephalic atraumatic Heart: RRR, normal peripheral pulses Respiratory: rhonchi Gastrointestinal: soft Skin: no rashes Psychiatric - other findings: Could not assess Hosp A/P - Plan Hosp A/P (1) acute hypoxic respiratory failure Status: Acute (2) COVID-19 virus detected Code(s): U07.1 - COVID-19 Status: Acute (3) UTI (urinary tract infection) Status: Acute (4) Hypertension Code(s): I10 - ESSENTIAL (PRIMARY) HYPERTENSION Status: Chronic Qualifiers: Hypertension type: essential hypertension Qualified Code(s): I10 - Essential (primary) hypertension (5) KG (acute kidney injury) Code(s): N17.9 - ACUTE KIDNEY FAILURE, UNSPECIFIED Status: Resolved (2) Diarrhea Code(s): R19.7 - DIARRHEA, UNSPECIFIED Status: Resolved Qualifiers: Diarrhea type: presumed infectious Qualified Code(s): R19.7 - Diarrhea, unspecified - Plan Continue mechanical ventilation in CCU. Patient completed remdesivir. Patient received convalescent plasma. Patient is on IV levofloxacin for UTI. Patient is vitamin C and zinc. Updated elkin Sinclair over the telephone.
[2020-03-20] MEDS: fentaNYL Citrate/PF 2,000 MCG in Sodium Chloride 0.9% 60 ML IV SCH (17:20)
[2020-03-20] MEDS: Amlodipine 5 MG TAB PO SCH (22:03)
[2020-03-21] MEDS: Propofol 1,000 MG/100 ML VIAL IV PRN ×2 (00:28→07:12)
[2020-03-21 05:34] LABS: Band 23 % (5-11); Hemoglobin 11.5 g/dL (12.0-16.0); Hypochromia SLIGHT = 6-15 cells (100X) (0-5/hpf); MDiff Complete? YES; Mean Corpuscular HGB CONC 32.8 g/dL (32.0-36.0); Mean Corpuscular Hemoglobin 30.1 pg (27.0-31.0); Mean Corpuscular Volume 91.6 fL (78.0-98.0); Mean Platelet Volume 9.2 fL (7.4-10.4); Monocytes 14 % (0-10); Neutrophil 63 % (42-75); Platelet Count 145 thou/uL (130-400); Platelet Morphology Comment Appears Adequate; RBC Distribution Width 13.1 % (11.5-14.5); Red Blood Cell (RBC) Count 3.83 mill/uL (4.20-5.40); White Blood Cell (WBC) Count 13.7 thou/uL (4.8-10.8)
[2020-03-21 05:43] LABS: Anion Gap 10 mmol/L (10-20); BUN (Urea Nitrogen) 34 mg/dL (9.8-20.1); Calc. Creatinine Clearance 92 mL/min (70-130); Calcium 7.7 mg/dL (7.8-10.44); Carbon Dioxide 24 mmol/L (23-31); Chloride 110 mmol/L (98-107); Glucose 203 mg/dL (83-110); Potassium 4.4 mmol/L (3.5-5.1); Sodium 140 mmol/L (136-145)
[2020-03-21] MEDS: HumaLOG 300 UNITS/3 ML VIAL SC PRN ×4 (06:05→23:35)
--- NOTE | 2020-03-21 07:50 | RAD ---
XR Chest 1 View Portable History: Ventilated patient Comparison: Radiograph prior day Findings: Perihilar and peripheral airspace opacities are similar. Endotracheal tube tip at the clavi cular level in good position. Enteric tube tip below diaphragm although out of field of view. No pneumothorax. No effusions. Mild pleural calcifications both lung apices. Impression: Similar examination of the chest from yesterday without improved lung aeration. Relative to the March 14, 2020 examination, the lung aeration is slightly improved.
[2020-03-21] MEDS ORDERED: Furosemide 40 MG/4 ML VIAL IVP SCH (08:45)
[2020-03-21] MEDS ORDERED: Sodium Chloride 0.9% 1,000 ML IV SCH (08:46)
[2020-03-21] MEDS: Dexamethasone 4 mg/ml Vial SLOW IVP SCH (09:13)
[2020-03-21] MEDS: Pantoprazole 40 MG GRANULES PACKET PER TUBE SCH (09:14)
[2020-03-21] MEDS: Enoxaparin Sodium 40 MG/0.4 ML SYRINGE SC SCH ×2 (09:14→20:33)
[2020-03-21] MEDS: Insulin Glargine 5 UNITS in Pre-Filled Syringe 1 EACH SC SCH (09:14)
[2020-03-21] MEDS: Ascorbic Acid 500 mg Chewable Tablet PO SCH (09:14)
[2020-03-21] MEDS: Zinc Sulfate 220 MG CAP PO SCH (09:14)
[2020-03-21] MEDS ORDERED: Fentanyl CADD 100 ML ONE (14:12)
--- NOTE | 2020-03-21 17:01 | PRG ---
DATE OF SERVICE: 03/21/2020 OBJECTIVE: VITAL SIGNS: Paresh's heart rate 62, FiO2 is at 40%, and blood pressure 140/78. Intake and outputs positive 2072. LUNGS: Remarkable for coarse equal breath sounds. HEART: Regular rhythm. ABDOMEN: Soft. EXTREMITIES: Without edema. LABORATORY DATA: Chest x-ray is remarkable for diffuse infiltrates. IMPRESSION: Respiratory failure with COVID-19 pneumonia. PLAN: We will continue supportive care. Gradual decrease in ventilatory support. Critical care time 30 min. Job ID: [id number] MTDD
--- NOTE | 2020-03-21 18:46 | PDOC.HOSPP ---
- Subjective Encounter Date: 03/21/20 Encounter Time: 12:00 Subjective: Patient seen for follow-up for respiratory failure. Patient is intubated. - Objective Vital Signs & Weight: Vital Signs (12 hours) Temp Pulse Resp BP Pulse Ox 03/21/20 18:32 59 L 137/78 03/21/20 18:00 17 03/21/20 16:00 96.0 F L 17 03/21/20 14:41 62 03/21/20 14:00 18 03/21/20 12:00 96.0 F L 16 03/21/20 10:46 65 03/21/20 10:00 16 03/21/20 08:00 97.0 F L 18 89 L 03/21/20 07:47 67 Weight Admit Weight 147 lb 11.2 oz Weight 183 lb 13.848 oz Most Recent Monitor Data Heart Rate from ECG 56 NIBP 137/78 NIBP BP-Mean 97 Respiration from ECG 17 SpO2 98 I&O: 03/20/20 03/21/20 03/22/20 06:59 06:59 06:59 Intake Total 3057 3228.8 966.1 Output Total 735 1155 2175 Balance 2322 2073.8 -1208.9 Result Diagrams: 03/21/20 05:00 03/21/20 05:00 Additional Labs: Accuchecks 03/21/20 03/21/20 03/21/20 16:52 09:37 05:53 POC Glucose 218 H 189 H 178 H 03/20/20 23:31 POC Glucose 222 H I reviewed patient's labs and MAR Hospitalist ROS - Review of Systems ROS unobtainable: due to endotracheal tube - Medication Medications: Active Medications Generic Name Dose Route Start Last Admin Trade Name Freq PRN Reason Stop Dose Admin Acetaminophen 650 mg 03/09/20 14:24 03/15/20 04:55 Acetaminophen 325 Mg Tab PO 650 mg Q4H PRN Administration Headache/Fever/Mild Pain (1-3) Acetaminophen 650 mg 03/09/20 14:24 03/10/20 23:15 Acetaminophen 650 Mg Suppository [place] 650 mg Q4H PRN Administration Headache/Fever/Mild Pain (1-3) Amlodipine Besylate 5 mg 03/10/20 21:00 03/20/20 22:03 Amlodipine 5 Mg Tab PO 5 mg HS DAVID Administration Ascorbic Acid 1,000 mg 03/10/20 09:00 03/21/20 09:14 Ascorbic Acid 500 Mg Chewable Tablet PO 1,000 mg DAILY DAVID Administration Dexamethasone 6 mg 03/21/20 09:00 03/21/20 09:13 Dexamethasone 4 Mg/Ml Vial SLOW IVP 6 mg DAILY DAVID Administration Enoxaparin Sodium 40 mg 03/16/20 21:00 03/21/20 09:14 Enoxaparin Sodium 40 Mg/0.4 Ml Syringe SC 40 mg 09,2099 DAVID Administration Guaifenesin/Dextromethorphan 15 ml 03/14/20 04:49 03/14/20 16:47 Guaifenesin Dm 100-10/5 Ml Udcup PO 15 ml Q4H PRN Administration Cough Levofloxacin 500 mg/ Device 100 mls @ 100 mls/hr 03/14/20 20:00 03/20/20 20:15 IVPB 03/24/20 23:59 100 mls Q24HR DAVID Administration Promethazine HCl 25 mg/ Sodium 51 mls @ 204 mls/hr 03/15/20 05:18 03/15/20 05:45 Chloride IVPB 51 mls Q6H PRN Administration Nausea/Vomiting Fentanyl Citrate 2,000 mcg/ 100 mls @ 0 mls/hr 03/15/20 13:45 03/20/20 17:20 Sodium Chloride IV 04/14/20 13:45 100 mls INF DAVID Administration Protocol Per Protocol Insulin Glargine 5 units/ 0.05 mls @ 0 mls/hr 03/17/20 09:00 03/21/20 09:14 Miscellaneous Medication SC 0.05 mls QAM DAVID Administration Dexmedetomidine HCl 400 mcg/ 100 mls @ 0 mls/hr 03/21/20 09:00 03/21/20 17:50 Sodium Chloride IVPB 100 mls INF DAVID Administration Protocol Per Protocol Insulin Human Lispro 0 units 03/15/20 10:15 03/21/20 16:00 Humalog 300 Units/3 Ml Vial SC 3 unit .MILD SLIDING SCALE PRN Administration Mild Correctional Scale Lorazepam 2 mg 03/15/20 13:45 03/20/20 13:30 Lorazepam 2 Mg/Ml Vial SLOW IVP 04/14/20 13:45 2 mg Q1H PRN Administration Breakthrough agitation Pantoprazole Sodium 40 mg 03/18/20 09:00 03/21/20 09:14 Pantoprazole 40 Mg Granules Packet PER TUBE 40 mg DAILY DAVID Administration Propofol 1,000 mg 03/15/20 13:45 03/21/20 07:12 Propofol 1,000 Mg/100 Ml Vial IV 04/14/20 13:45 1,000 mg INF PRN Administration TO ACHIEVE GOAL RASS Protocol Zinc Sulfate 220 mg 03/10/20 09:00 03/21/20 09:14 Zinc Sulfate 220 Mg Cap PO 220 mg DAILY DAVID Administration - Exam General - other findings: Intubated Eye: anicteric sclera Neck: supple Heart: RRR Respiratory: CTAB Gastrointestinal: soft Skin: no rashes Psychiatric - other findings: Unable to assess Hosp A/P - Plan Hosp A/P (1) acute hypoxic respiratory failure Status: Acute (2) COVID-19 virus detected Code(s): U07.1 - COVID-19 Status: Acute (3) UTI (urinary tract infection) Status: Acute (4) Hypertension Code(s): I10 - ESSENTIAL (PRIMARY) HYPERTENSION Status: Chronic Qualifiers: Hypertension type: essential hypertension Qualified Code(s): I10 - Essential (primary) hypertension (5) KG (acute kidney injury) Code(s): N17.9 - ACUTE KIDNEY FAILURE, UNSPECIFIED Status: Resolved (2) Diarrhea Code(s): R19.7 - DIARRHEA, UNSPECIFIED Status: Resolved Qualifiers: Diarrhea type: presumed infectious Qualified Code(s): R19.7 - Diarrhea, unspecified - Plan Pt is on mechanical ventilation in CCU. completed remdesivir. s/p convalescent plasma. continue levofloxacin for UTI. Patient is vitamin C and zinc. Updated elkin Sinclair over the telephone.
[2020-03-21] MEDS: Amlodipine 5 MG TAB PO SCH (20:32)
[2020-03-22] MEDS: HumaLOG 300 UNITS/3 ML VIAL SC PRN ×4 (05:03→22:50)
[2020-03-22 05:46] LABS: Anion Gap 13 mmol/L (10-20); BUN (Urea Nitrogen) 35 mg/dL (9.8-20.1); Calc. Creatinine Clearance 92 mL/min (70-130); Calcium 8.1 mg/dL (7.8-10.44); Carbon Dioxide 27 mmol/L (23-31); Chloride 106 mmol/L (98-107); Glucose 184 mg/dL (83-110); Potassium 4.1 mmol/L (3.5-5.1); Sodium 142 mmol/L (136-145)
[2020-03-22 05:54] LABS: Band 9 % (5-11); Hemoglobin 12.5 g/dL (12.0-16.0); Lymphocytes 3 % (21-51); MDiff Complete? YES; Mean Corpuscular HGB CONC 31.9 g/dL (32.0-36.0); Mean Corpuscular Hemoglobin 28.8 pg (27.0-31.0); Mean Corpuscular Volume 90.3 fL (78.0-98.0); Mean Platelet Volume 9.6 fL (7.4-10.4); Monocytes 3 % (0-10); Neutrophil 85 % (42-75); Platelet Count 168 thou/uL (130-400); Platelet Morphology Comment Appears Adequate; RBC Morphology Normal; Red Blood Cell (RBC) Count 4.34 mill/uL (4.20-5.40); White Blood Cell (WBC) Count 13.7 thou/uL (4.8-10.8)
--- NOTE | 2020-03-22 08:03 | RAD ---
XR Chest 1 View Portable History: Ventilated patient Comparison: Radiograph prior day Findings: Endotracheal tube tip above the sergei 3 cm. Enteric tube tip below diaphragm although out of field of view. The perihilar peripheral airspace opacities are similar. No pneumothorax or pneumomediastinum. Impression: No significant change in the radiographic appearance of the chest. No pneumothorax or pne umomediastinum.
[2020-03-22] MEDS: Insulin Glargine 5 UNITS in Pre-Filled Syringe 1 EACH SC SCH (09:31)
[2020-03-22] MEDS: Pantoprazole 40 MG GRANULES PACKET PER TUBE SCH (09:31)
[2020-03-22] MEDS: Dexamethasone 4 mg/ml Vial SLOW IVP SCH (09:32)
[2020-03-22] MEDS: Enoxaparin Sodium 40 MG/0.4 ML SYRINGE SC SCH ×2 (09:44→20:19)
[2020-03-22] MEDS: Ascorbic Acid 500 mg Chewable Tablet PO SCH (09:44)
[2020-03-22] MEDS: Zinc Sulfate 220 MG CAP PO SCH (09:45)
[2020-03-22] MEDS: Saccharomyces boulardii 250 MG CAP PO SCH (10:45)
[2020-03-22] MEDS ORDERED: Fentanyl CADD 100 ML ONE (14:53)
--- NOTE | 2020-03-22 18:17 | PDOC.HOSPP ---
- Subjective Encounter Date: 03/22/20 Encounter Time: 13:00 Subjective: Patient seen for follow-up regarding acute respiratory failure, hypoxic. Intubated, could not complete review of systems. - Objective Vital Signs & Weight: Vital Signs (12 hours) Pulse Resp Pulse Ox 03/22/20 10:11 66 03/22/20 08:00 22 H 96 03/22/20 07:21 81 Weight Admit Weight 147 lb 11.2 oz Weight 169 lb 12.095 oz Most Recent Monitor Data Heart Rate from ECG 64 NIBP 140/73 NIBP BP-Mean 95 Respiration from ECG 24 SpO2 97 I&O: 03/21/20 03/22/20 03/23/20 06:59 06:59 06:59 Intake Total 3228.8 1661.4 80 Output Total 1155 2805 240 Balance 2073.8 -1143.6 -160 Result Diagrams: 03/22/20 03:55 03/22/20 03:30 Additional Labs: Accuchecks 03/22/20 03/22/20 03/22/20 16:34 10:58 08:05 POC Glucose 176 H 157 H 137 H 03/22/20 03/21/20 04:55 23:54 POC Glucose 171 H 209 H Labs and MAR reviewed by me Hospitalist ROS - Review of Systems ROS unobtainable: due to endotracheal tube - Medication Medications: Active Medications Generic Name Dose Route Start Last Admin Trade Name Freq PRN Reason Stop Dose Admin Acetaminophen 650 mg 03/09/20 14:24 03/15/20 04:55 Acetaminophen 325 Mg Tab PO 650 mg Q4H PRN Administration Headache/Fever/Mild Pain (1-3) Acetaminophen 650 mg 03/09/20 14:24 03/10/20 23:15 Acetaminophen 650 Mg Suppository [place] 650 mg Q4H PRN Administration Headache/Fever/Mild Pain (1-3) Amlodipine Besylate 5 mg 03/10/20 21:00 03/21/20 20:32 Amlodipine 5 Mg Tab PO 5 mg HS DAVID Administration Ascorbic Acid 1,000 mg 03/10/20 09:00 03/22/20 09:44 Ascorbic Acid 500 Mg Chewable Tablet PO 1,000 mg DAILY DAVID Administration Dexamethasone 6 mg 03/21/20 09:00 03/22/20 09:32 Dexamethasone 4 Mg/Ml Vial SLOW IVP 6 mg DAILY DAVID Administration Enoxaparin Sodium 40 mg 03/16/20 21:00 03/22/20 09:44 Enoxaparin Sodium 40 Mg/0.4 Ml Syringe SC 40 mg 0900,2100 DAVID Administration Guaifenesin/Dextromethorphan 15 ml 03/14/20 04:49 03/14/20 16:47 Guaifenesin Dm 100-10/5 Ml Udcup PO 15 ml Q4H PRN Administration Cough Levofloxacin 500 mg/ Device 100 mls @ 100 mls/hr 03/14/20 20:00 03/21/20 20:32 IVPB 03/24/20 23:59 100 mls Q24HR DAVID Administration Promethazine HCl 25 mg/ Sodium 51 mls @ 204 mls/hr 03/15/20 05:18 03/15/20 05:45 Chloride IVPB 51 mls Q6H PRN Administration Nausea/Vomiting Fentanyl Citrate 2,000 mcg/ 100 mls @ 0 mls/hr 03/15/20 13:45 03/20/20 17:20 Sodium Chloride IV 04/14/20 13:45 100 mls INF DAVID Administration Protocol Per Protocol Insulin Glargine 5 units/ 0.05 mls @ 0 mls/hr 03/17/20 09:00 03/22/20 09:31 Miscellaneous Medication SC 0.05 mls QAM DAVID Administration Dexmedetomidine HCl 400 mcg/ 100 mls @ 0 mls/hr 03/21/20 09:00 03/22/20 12:27 Sodium Chloride IVPB 100 mls INF DAVID Administration Protocol Per Protocol Insulin Human Lispro 0 units 03/15/20 10:15 03/22/20 17:00 Humalog 300 Units/3 Ml Vial SC 2 unit .MILD SLIDING SCALE PRN Administration Mild Correctional Scale Lorazepam 2 mg 03/15/20 13:45 03/20/20 13:30 Lorazepam 2 Mg/Ml Vial SLOW IVP 04/14/20 13:45 2 mg Q1H PRN Administration Breakthrough agitation Pantoprazole Sodium 40 mg 03/18/20 09:00 03/22/20 09:31 Pantoprazole 40 Mg Granules Packet PER TUBE 40 mg DAILY DAVID Administration Propofol 1,000 mg 03/15/20 13:45 03/21/20 07:12 Propofol 1,000 Mg/100 Ml Vial IV 04/14/20 13:45 1,000 mg INF PRN Administration TO ACHIEVE GOAL RASS Protocol Saccharomyces Boulardii 250 mg 03/22/20 09:00 03/22/20 10:45 Saccharomyces Boulardii 250 Mg Cap PO 250 mg DAILY DAVID Administration Zinc Sulfate 220 mg 03/10/20 09:00 03/22/20 09:45 Zinc Sulfate 220 Mg Cap PO 220 mg DAILY DAVID Administration - Exam General - other findings: Intubated Neck: no thyromegaly Heart: RRR Respiratory: rhonchi Gastrointestinal: soft Skin: no rashes Psychiatric - other findings: Unable to assess Hosp A/P - Plan Hosp A/P (1) acute hypoxic respiratory failure Status: Acute (2) COVID-19 virus detected Code(s): U07.1 - COVID-19 Status: Acute (3) UTI (urinary tract infection) Status: Acute (4) Hypertension Code(s): I10 - ESSENTIAL (PRIMARY) HYPERTENSION Status: Chronic Qualifiers: Hypertension type: essential hypertension Qualified Code(s): I10 - Essential (primary) hypertension (5) KG (acute kidney injury) Code(s): N17.9 - ACUTE KIDNEY FAILURE, UNSPECIFIED Status: Resolved (2) Diarrhea Code(s): R19.7 - DIARRHEA, UNSPECIFIED Status: Resolved Qualifiers: Diarrhea type: presumed infectious Qualified Code(s): R19.7 - Diarrhea, unspecified - Plan Pt is on mechanical ventilation in CCU. Patient completed remdesivir. s/p convalescent plasma. Patient is on levofloxacin for UTI. Patient is on vitamin C and zinc. Continue Florastor for probable antibiotic associated diarrhea.
[2020-03-22] MEDS: Amlodipine 5 MG TAB PO SCH (20:19)
--- NOTE | 2020-03-22 21:52 | PRG ---
DATE OF SERVICE: 03/22/2020 SUBJECTIVE: Ms. Yoder is doing reasonably well. We were able to decrease her PEEP today. Her FiO2 is at 30%. We have decreased her rate. OBJECTIVE: VITAL SIGNS: Stable. Heart rate is in 60s, blood pressure 140/81, respiratory rates in the 20s. She is afebrile. LUNGS: Remarkable for equal breath sounds. HEART: Regular rhythm. ABDOMEN: Soft. EXTREMITIES: Without edema. LABORATORY DATA: Sodium 142, potassium 4.1 chloride 106, bicarb 27, BUN 35, creatinine 0.6. LABORATORY DATA: White count 13.7, hemoglobin 12.5, platelets 168. IMPRESSION: 1. Respiratory failure secondary to COVID pneumonia. 2. Chest x-ray today is unchanged. 3. Her lung compliance and her gas exchange suggests that she may be weanable shortly. Critical care time 30 min. Job ID: [id number] MTDD
[2020-03-23] MEDS: HumaLOG 300 UNITS/3 ML VIAL SC PRN ×2 (05:51→11:14)
[2020-03-23 05:57] LABS: Anion Gap 13 mmol/L (10-20); BUN (Urea Nitrogen) 37 mg/dL (9.8-20.1); Calc. Creatinine Clearance 89 mL/min (70-130); Calcium 8.1 mg/dL (7.8-10.44); Carbon Dioxide 27 mmol/L (23-31); Chloride 103 mmol/L (98-107); Glucose 173 mg/dL (83-110); Potassium 4.4 mmol/L (3.5-5.1); Sodium 139 mmol/L (136-145)
[2020-03-23 06:04] LABS: Band 4 % (5-11); Eosinophils 1 % (0-10); Hemoglobin 12.9 g/dL (12.0-16.0); Lymphocytes 11 % (21-51); MDiff Complete? YES; Mean Corpuscular HGB CONC 32.8 g/dL (32.0-36.0); Mean Corpuscular Hemoglobin 29.8 pg (27.0-31.0); Mean Corpuscular Volume 90.6 fL (78.0-98.0); Mean Platelet Volume 9.2 fL (7.4-10.4); Monocytes 12 % (0-10); Neutrophil 71 % (42-75); Platelet Count 191 thou/uL (130-400); Platelet Morphology Comment Appears Adequate; RBC Distribution Width 12.9 % (11.5-14.5); RBC Morphology Normal; Reactive Lymphocytes 1 % (0-10); Red Blood Cell (RBC) Count 4.32 mill/uL (4.20-5.40); White Blood Cell (WBC) Count 15.2 thou/uL (4.8-10.8)
[2020-03-23] MEDS: Insulin Glargine 5 UNITS in Pre-Filled Syringe 1 EACH SC SCH (08:08)
[2020-03-23] MEDS: Pantoprazole 40 MG GRANULES PACKET PER TUBE SCH (08:10)
[2020-03-23] MEDS: Zinc Sulfate 220 MG CAP PO SCH (08:10)
[2020-03-23] MEDS: Ascorbic Acid 500 mg Chewable Tablet PO SCH (08:10)
[2020-03-23] MEDS: Saccharomyces boulardii 250 MG CAP PO SCH (08:10)
[2020-03-23] MEDS: Dexamethasone 4 mg/ml Vial SLOW IVP SCH (08:10)
[2020-03-23] MEDS: Enoxaparin Sodium 40 MG/0.4 ML SYRINGE SC SCH (08:10)
--- NOTE | 2020-03-23 08:57 | RAD ---
CHEST 1 VIEW: Date: 03/23/2020 INDICATION: History of intubation. COMPARISON: Prior exam dated 03/22/2020. FINDINGS: The diffuse air space disease is stable. Mild cardiomegaly is stable. ET tube and gastric catheter ar e stable appearing. No pneumothorax is evident. Chronic osseous changes are similar appearing. IMPRESSION: 1. Stable bilateral pneumonia. 2. Stable tubes and lines. 3. No pneumothorax. POS: [facility]
[2020-03-23] MEDS ORDERED: Fentanyl CADD 100 ML IV SCH (12:15)
[2020-03-23] MEDS ORDERED: Fentanyl CADD 100 ML ONE (13:12)
[2020-03-23] MEDS: Morphine 10 MG/ML VIAL SLOW IVP PRN (16:07)
--- NOTE | 2020-03-23 18:38 | PDOC.HOSPP ---
- Subjective Encounter Date: 03/23/20 Encounter Time: 11:30 Subjective: Patient seen for follow-up regarding hypoxic respiratory failure. Intubated, could not complete review of systems. Appears comfortable. - Objective Vital Signs & Weight: Vital Signs (12 hours) Temp Pulse Resp BP Pulse Ox 03/23/20 18:30 95 03/23/20 16:08 94 22 H 93 L 03/23/20 14:00 80 03/23/20 12:00 97.8 F 03/23/20 10:59 98 160/96 H 03/23/20 09:00 97.9 F 03/23/20 07:36 85 Weight Admit Weight 147 lb 11.2 oz Weight 171 lb 4.787 oz Most Recent Monitor Data Heart Rate from ECG 85 NIBP 165/87 NIBP BP-Mean 113 Respiration from ECG 26 SpO2 98 I&O: 03/22/20 03/23/20 03/24/20 06:59 06:59 06:59 Intake Total 1661.4 1371.8 170 Output Total 2805 1290 420 Balance -1143.6 81.8 -250 Result Diagrams: 03/23/20 04:30 03/23/20 04:30 Additional Labs: Accuchecks 03/23/20 03/23/20 03/23/20 16:02 10:20 05:45 POC Glucose 221 H 202 H 181 H 03/22/20 22:43 POC Glucose 164 H I reviewed patient's labs and MAR Hospitalist ROS - Review of Systems ROS unobtainable: due to endotracheal tube - Medication Medications: Active Medications Generic Name Dose Route Start Last Admin Trade Name Freq PRN Reason Stop Dose Admin Morphine Sulfate 10 mg 03/23/20 14:04 03/23/20 16:07 Morphine 10 Mg/Ml Vial SLOW IVP 10 mg Q2H PRN Administration Congestion - Exam General - other findings: Intubated ENT: normocephalic atraumatic Neck: no lymphadenopathy Heart: RRR Respiratory: rales, rhonchi Extremities: no cyanosis Psychiatric - other findings: Unable to assess Hosp A/P - Plan Hosp A/P (1) acute hypoxic respiratory failure Status: Acute (2) COVID-19 virus detected Code(s): U07.1 - COVID-19 Status: Acute (3) UTI (urinary tract infection) Status: Acute (4) Hypertension Code(s): I10 - ESSENTIAL (PRIMARY) HYPERTENSION Status: Chronic Qualifiers: Hypertension type: essential hypertension Qualified Code(s): I10 - Essential (primary) hypertension (5) KG (acute kidney injury) Code(s): N17.9 - ACUTE KIDNEY FAILURE, UNSPECIFIED Status: Resolved (2) Diarrhea Code(s): R19.7 - DIARRHEA, UNSPECIFIED Status: Resolved Qualifiers: Diarrhea type: presumed infectious Qualified Code(s): R19.7 - Diarrhea, unspecified - Plan Intubated and mechanically ventilated in CCU completed remdesivir. s/p convalescent plasma. Received antibiotics for UTI
--- NOTE | 2020-03-23 18:42 | PRG ---
DATE OF SERVICE: 03/23/2020 SUBJECTIVE: Radha Yoder has continued to have improved gas exchange. Now she is at a point, where she was a candidate for spontaneous breathing trial. She did well throughout the day. We made plans to extubate her. We would not re-intubate her. She has subsequently been extubated. Oximetry is 93% on 5 L cannula. OBJECTIVE: VITAL SIGNS: Heart rate is 94, respiratory rate is 22, blood pressure 165/87. LUNGS: She has equal breath sounds. HEART: Regular rate and rhythm. ABDOMEN: Soft. EXTREMITIES: Without edema. LABORATORY DATA: White count today was 15.2, hemoglobin 12.9, platelets 191. Electrolytes are normal. PLAN: She will transfer out of the Critical Care Unit to the floor for comfort care and ongoing support. Job ID: [id number]
[2020-03-24] MEDS: Lorazepam 2 MG/ML VIAL SLOW IVP PRN ×7 (02:50→22:17)
[2020-03-24] MEDS: Morphine 10 MG/ML VIAL SLOW IVP PRN ×2 (04:33→07:50)
[2020-03-24] MEDS ORDERED: Scopolamine 1.5 mg/72 hour Patch TD SCH (11:00)
[2020-03-24] MEDS ORDERED: Naloxone HCl 0.4 mg/ml Vial ONE (11:33)
[2020-03-24] MEDS ORDERED: Furosemide 40 MG/4 ML VIAL ONE (11:36)
[2020-03-24] MEDS ORDERED: Acetaminophen 650 MG Suppository PR PRN (12:12)
[2020-03-24] MEDS: Morphine 4 MG/ML VIAL SLOW IVP PRN ×4 (12:46→22:16)
[2020-03-24 14:21] VITALS: BMI 26.8
--- NOTE | 2020-03-24 19:48 | PDOC.HOSPP ---
- Subjective Encounter Date: 03/24/20 Encounter Time: 12:00 Subjective: Patient seen at various times today. She is nonverbal, could not complete review of systems. - Objective Vital Signs & Weight: Vital Signs (12 hours) Temp Pulse Resp BP Pulse Ox 03/24/20 17:20 90 24 H 89/47 L 97 03/24/20 16:00 98.5 F 81 26 H 84/49 L 97 03/24/20 12:44 100.2 F H 128 H 28 H 144/64 H 85 L 03/24/20 08:00 92 L Weight Admit Weight 147 lb 11.2 oz Weight 171 lb 4.787 oz Most Recent Monitor Data Heart Rate from ECG 113 NIBP 151/92 NIBP BP-Mean 111 Respiration from ECG 28 SpO2 94 I&O: 03/23/20 03/24/20 03/25/20 06:59 06:59 06:59 Intake Total 1371.8 170 Output Total 1290 420 Balance 81.8 -250 Result Diagrams: 03/23/20 04:30 03/23/20 04:30 Additional Labs: Labs and MAR reviewed by sd Hospitalist ROS - Review of Systems ROS unobtainable: due to mental status - Medication Medications: Active Medications Generic Name Dose Route Start Last Admin Trade Name Freq PRN Reason Stop Dose Admin Acetaminophen 650 mg 03/24/20 12:12 03/24/20 12:47 Acetaminophen 650 Mg Suppository [place] 650 mg Q4H PRN Administration Headache/Fever or Pain Sodium Chloride 1,000 mls @ 0 mls/hr 03/21/20 08:46 03/24/20 11:14 Normal Saline 0.9% IV 1,000 mls .Q0M DAVID Administration KVO Levofloxacin 500 mg/ Device 100 mls @ 100 mls/hr 03/24/20 11:00 03/24/20 18:15 IVPB Not Given Q24HR DAVID Lorazepam 1 mg 03/24/20 12:29 03/24/20 16:58 Lorazepam 2 Mg/Ml Vial SLOW IVP 1 mg Q2H PRN Administration ANXIETY Morphine Sulfate 4 mg 03/24/20 12:29 03/24/20 19:41 Morphine 4 Mg/Ml Vial SLOW IVP 4 mg Q2H PRN Administration Pain Scopolamine 1.5 mg 03/24/20 11:00 03/24/20 11:13 Scopolamine 1.5 Mg/72 Hour Patch TD 1.5 mg Q3D DAVID Administration - Exam Eye: anicteric sclera ENT: normocephalic atraumatic Neck: no thyromegaly Heart: RRR Respiratory: rhonchi Gastrointestinal: soft, non-tender Skin: no rashes Psychiatric - other findings: Could not assess Hosp A/P - Plan Patient is a pleasant 79-year-old lady who was admitted to the hospital on March 09, 2020 for COVID-19 infection as well as diarrhea and urinary tract infection. Urine culture grew E. coli. She received antibiotics. C. difficile test was negative on March 13. She subsequently had respiratory decompensation. She was started on remdesivir and also received convalescent plasma. On March 15 there was a code green for her hypoxia. She was started on BiPAP, subsequently transferred to the critical care unit. She was eventually intubated and mechanically ventilated. She was seen by pulmonology and palliative care services. She was managed on the ventilator until March 23, 2020. On that day she was extubated and transferred to the floor for comfort measures. On March 24 patient was hypoxic and worsening. Discussed with patient's son, who initially stated they wanted all active measures short of CPR. I resumed her acute treatments. Following further discussion with son, and discussion between family members, they have opted to keep the patient comfortable. Patient is currently on morphine as needed, Ativan as needed and scopolamine patch in addition to other medications. Prognosis is poor at this time. Hosp A/P (1) acute hypoxic respiratory failure Status: Acute (2) COVID-19 virus detected Code(s): U07.1 - COVID-19 Status: Acute (3) UTI (urinary tract infection) Status: Acute (4) Hypertension Code(s): I10 - ESSENTIAL (PRIMARY) HYPERTENSION Status: Chronic Qualifiers: Hypertension type: essential hypertension Qualified Code(s): I10 - Essential (primary) hypertension (5) KG (acute kidney injury) Code(s): N17.9 - ACUTE KIDNEY FAILURE, UNSPECIFIED Status: Resolved (2) Diarrhea Code(s): R19.7 - DIARRHEA, UNSPECIFIED Status: Resolved Qualifiers: Diarrhea type: presumed infectious Qualified Code(s): R19.7 - Diarrhea, unspecified - Plan Patient was extubated yesterday. Clinically worse today. I discussed with patient's son. Initially he wanted all active treatments. On further discussion with son as well as discussion between family members, they wanted to keep the patient as comfortable as possible.
[2020-03-25] MEDS: Morphine 4 MG/ML VIAL SLOW IVP PRN ×5 (00:50→18:07)
[2020-03-25] MEDS: Lorazepam 2 MG/ML VIAL SLOW IVP PRN ×2 (02:35→05:44)
[2020-03-25] MEDS ORDERED: Zinc Sulfate 220 MG CAP PO SCH (09:00)
[2020-03-25] MEDS ORDERED: Ascorbic Acid 500 mg Chewable Tablet PO SCH (09:00)
[2020-03-25] MEDS ORDERED: Dexamethasone 4 mg/ml Vial SLOW IVP SCH (09:00)
[2020-03-25 09:25] VITALS: BP 120/51; TEMP 98.2
--- NOTE | 2020-03-25 14:39 | PDOC.HOSPP ---
- Subjective Encounter Date: 03/25/20 non-verbal Subjective: Patient is nonverbal. She is on nonrebreather mask. - Objective Vital Signs & Weight: Vital Signs (12 hours) Temp Pulse Resp BP Pulse Ox 03/25/20 09:24 98.2 F 97 26 H 120/51 L 99 03/25/20 08:00 99 Weight Admit Weight 147 lb 11.2 oz Weight 171 lb 4.787 oz Most Recent Monitor Data Heart Rate from ECG 113 NIBP 151/92 NIBP BP-Mean 111 Respiration from ECG 28 SpO2 94 I&O: 03/24/20 03/25/20 03/26/20 06:59 06:59 06:59 Intake Total 170 100 Output Total 420 700 Balance -250 -600 Result Diagrams: 03/23/20 04:30 03/23/20 04:30 Hospitalist ROS - Medication Medications: Active Medications Generic Name Dose Route Start Last Admin Trade Name Freq PRN Reason Stop Dose Admin Acetaminophen 650 mg 03/24/20 12:12 03/24/20 12:47 Acetaminophen 650 Mg Suppository [place] 650 mg Q4H PRN Administration Headache/Fever or Pain Sodium Chloride 1,000 mls @ 0 mls/hr 03/21/20 08:46 03/24/20 11:14 Normal Saline 0.9% IV 1,000 mls .Q0M DAVID Administration KVO Lorazepam 1 mg 03/24/20 12:29 03/25/20 05:44 Lorazepam 2 Mg/Ml Vial SLOW IVP 1 mg Q2H PRN Administration ANXIETY Morphine Sulfate 4 mg 03/24/20 12:29 03/25/20 12:46 Morphine 4 Mg/Ml Vial SLOW IVP 4 mg Q2H PRN Administration Pain Scopolamine 1.5 mg 03/24/20 11:00 03/24/20 11:13 Scopolamine 1.5 Mg/72 Hour Patch TD 1.5 mg Q3D DAVID Administration - Exam General Appearance: ill appearing Neck: supple Respiratory: tachypneic Extremities: no cyanosis Hosp A/P (1) COVID-19 virus detected Code(s): U07.1 - COVID-19 Status: Acute (2) Palliative care encounter Code(s): Z51.5 - ENCOUNTER FOR PALLIATIVE CARE Status: Acute - Plan The patient is being managed for comfort at this point. She is on nonrebreather mask. Appears to be tachypneic and unresponsive. She will likely pass away not too long from now.
--- NOTE | 2020-03-26 12:08 | PDOC.DS.DS ---
Provider - Provider Date of Admission: 03/11/20 14:31 Date of Discharge: 03/25/20 Admitting Provider: Elias Ly MD Primary Care Physician: Ankur Jha MD Course - Hospital Course Hospital Course: The patient is a 79-year-old female with past medical history of hypertension was admitted to the hospital for management of acute respiratory failure with hypoxia and diarrhea due to COVID-19 infection. Patient received remdesivir, convalescent plasma, dexamethasone, anticoagulation. She was on the ventilator until March 23 and subsequently she was extubated and transitioned to comfort care and ultimately hospice. Resuscitation Status: 03/16/20 13:20 Resuscitation Status Routine Resuscitation Status: DNAR: NO Resuscitation Discussed with: confirmed with spouse, and 2 children - Labs Lab Results: 03/23/20 04:30 03/23/20 04:30 Microbiology - Entire Visit 03/20/20 15:10 Stool C. difficile GDH Antigen & Toxins - Final 03/13/20 14:20 Stool - Liquid Stool Culture - Final 03/13/20 14:20 Stool C. difficile GDH Antigen & Toxins - Final 03/13/20 14:20 Stool - Liquid Campylobacter Antigen Assay - Final 03/13/20 14:20 Stool - Liquid Shiga Toxin Test - Final 03/11/20 14:00 Urine voided Urine Culture - Final Escherichia coli - Physical Exam Vitals: Weight Admit Weight 147 lb 11.2 oz Weight 171 lb 4.787 oz Most Recent Monitor Data Heart Rate from ECG 113 NIBP 151/92 NIBP BP-Mean 111 Respiration from ECG 28 SpO2 94 Physical Exam: The patient was seen and examined on the day of discharge. Problem - Problem (1) COVID-19 virus detected Code(s): U07.1 - COVID-19 Status: Acute (2) Palliative care encounter Code(s): Z51.5 - ENCOUNTER FOR PALLIATIVE CARE Status: Acute Plan - Discharge Medications Prescriptions: Nitrofurantoin Monohyd/M-Cryst [Macrobid] 100 mg PO BID #14 cap Ascorbic Acid [Vitamin C] 1,000 mg PO DAILY #7 tablet Zinc Sulfate 220 mg PO DAILY #7 cap Home Medications: Medication Instructions Recorded Confirmed Type Amlodipine Besylate [amLODIPine 5 mg PO HS 03/09/20 03/09/20 History Besylate] Esomeprazole Magnesium 40 mg PO DAILY 03/09/20 03/09/20 History Lisinopril 20 mg PO DAILY 03/09/20 03/09/20 History Ascorbic Acid [Vitamin C] 1,000 mg PO DAILY #7 tablet 03/14/20 Rx Nitrofurantoin Monohyd/M-Cryst 100 mg PO BID #14 cap 03/14/20 Rx [Macrobid] Zinc Sulfate 220 mg PO DAILY #7 cap 03/14/20 Rx Allergies: No Known Allergies Allergy (Verified 03/09/20 20:08) - Follow up Plan Referrals: Ankur Jha MD [Primary Care Provider] - 3 Days Disposition: [facility] Quality - Care Measures CORE MEASURES:: N/A
== END 2020-03-25 18:52 | disposition hospice, inpatient (51) | DRG 207 ==
LOC: ERS 10:42 → ERHOLD 13:55 → 2SW 18:45 → T4-A 03-10 11:38 → OBSVTOIN 03-11 14:31 → IMCU/EMU 03-15 09:14 → T4-A 03-23 19:37
PROVIDERS: ADMIT Internal Medicine; ATTEND Internal Medicine
PROC: XW13325 Transfusion of Convalescent Plasma (Nonautologous) into Peripheral Vein, Percutaneous Approach, New Technology Group 5 (ICD-10-PCS; principal; 2020-03-11)
PROC: 8E0ZXY6 Isolation (ICD-10-PCS; 2020-03-11)
PROC: XW033E5 Introduction of Remdesivir Anti-infective into Peripheral Vein, Percutaneous Approach, New Technology Group 5 (ICD-10-PCS; 2020-03-14)
PROC: 5A1955Z Respiratory Ventilation, Greater than 96 Consecutive Hours (ICD-10-PCS; 2020-03-15)
PROC: 0BH17EZ Insertion of Endotracheal Airway into Trachea, Via Natural or Artificial Opening (ICD-10-PCS; 2020-03-15)
DX: U07.1 COVID-19 (principal); J96.01 Acute respiratory failure with hypoxia; J12.82 Pneumonia due to coronavirus disease 2019; N17.9 Acute kidney failure, unspecified; I24.8 Other forms of acute ischemic heart disease; N39.0 Urinary tract infection, site not specified; I44.7 Left bundle-branch block, unspecified; I10 Essential (primary) hypertension; Z51.5 Encounter for palliative care; R77.8 Other specified abnormalities of plasma proteins; B96.20 Unspecified Escherichia coli [E. coli] as the cause of diseases classified elsewhere; Z79.899 Other long term (current) drug therapy; E87.6 Hypokalemia; Z66 Do not resuscitate
CPT/HCPCS: 36415; 36416; 36430; 36600; 51701; 51798; 71045; 80048; 80053; 80076; 81001; 82550; 82553; 82805; 83605; 83690; 83735; 83880; 84484; 85007; 85025; 85027; 85379; 86140; 86850; 86900; 86901; 87045; 87046; 87077; 87086; 87186; 87324; 87427; 87449; 93005; 94002; 94003; 94660; 94760; 96374; 96375; G0378; J0696; J1100; J1650; J1815; J1940; J1956; J2060; J2270; J2310; J2405; J2550; J2704; J3010; J3490; J7050; P9017

== ENCOUNTER 2020-03-25 19:02 | Inpatient (IN) | payer OTHER ==
[2020-03-25] MEDS ORDERED: Scopolamine 1.5 mg/72 hour Patch TOP PRN (19:45)
[2020-03-25] MEDS ORDERED: Morphine 2 MG/ML VIAL SLOW IVP PRN (19:45)
[2020-03-25] MEDS: Morphine 4 MG/ML VIAL SLOW IVP SCH ×2 (20:16→22:23)
[2020-03-25] MEDS: Lorazepam 2 MG/ML VIAL SLOW IVP PRN (20:16)
[2020-03-25 20:20] VITALS: BP 93/46; TEMP 98.7
[2020-03-26] MEDS: Morphine 4 MG/ML VIAL SLOW IVP SCH ×4 (00:25→06:03)
[2020-03-26] MEDS: Lorazepam 2 MG/ML VIAL SLOW IVP PRN ×3 (00:25→06:03)
== END 2020-03-26 07:45 | disposition expired | DRG 951 ==
LOC: T4-A 19:02
PROVIDERS: ADMIT Family Medicine; ATTEND Family Medicine
DX: Z51.5 Encounter for palliative care (principal); U07.1 COVID-19; N17.9 Acute kidney failure, unspecified; I10 Essential (primary) hypertension; Z79.899 Other long term (current) drug therapy; Z98.890 Other specified postprocedural states; R77.8 Other specified abnormalities of plasma proteins; R19.7 Diarrhea, unspecified
CPT/HCPCS: J2060; J2270